=== PATIENT | female | born 1970 | race Caucasian/White ===

== ENCOUNTER 2019-12-21 17:24 | Emergency (ER) | payer MEDICAID, SELFPAY ==
[2019-12-21 17:26] VITALS: BP 120/64; PULSE 57; RESP 16; TEMP 36.4; O2SAT 99; BMI 24.2
--- NOTE | 2019-12-21 17:35 | CTR_ITS ---
PROCEDURE INFORMATION: Exam: CT Head Without Contrast Exam date and time: 12/21/2019 5:52 PM Age: 49 years old Clinical indication: Pain; Dizziness and weakness, extremity; Left; Headache; Prior surgery; Surgery type: Jaw; Additional info: Headache, dizziness TECHNIQUE: Imaging protocol: Computed tomography of the head without contrast. Total DLP: 731.55 mGy-cm Radiation optimization: All CT scans at this facility use at least one of these dose optimization techniques: automated exposure control; mA and/or kV adjustment per patient size (includes targeted exams where dose is matched to clinical indication); or iterative reconstruction. COMPARISON: CT head wo con* [id number] 04/22/2013 10:16 AM FINDINGS: Brain: Normal. No hemorrhage. Unremarkable white matter. No mass effect. Ventricles: Normal. No ventriculomegaly. Bones/joints: Unremarkable. No acute fracture. Sinuses: Visualized sinuses are unremarkable. No fluid levels. Mastoid air cells: Visualized mastoid air cells are well aerated. Soft tissues: Unremarkable. CT/CT head wo con* [id number] IMPRESSION: No acute intracranial abnormality. Radiation Dose CTDIVOL = (mGy): DLP = 731.55 (mGy-cm)
[2019-12-21 17:54] LABS: Basophils % 0.4 %; Eosinophils # 0.2 10^3/uL (0.0-0.8); Eosinophils % 2.3 %; Hematocrit 45.8 % (37.0-47.0); Hemoglobin 15.3 g/dL (11.5-15.3); Lymphocytes # 3.4 10^3/uL (0.8-4.8); Lymphocytes % 46.2 %; Mean Corpuscular HGB Conc 33.4 g/dL (30.0-36.0); Mean Corpuscular Hemoglobin 32.7 pg (28.0-34.0); Mean Corpuscular Volume 97.9 fL (81-99); Monocytes # 0.3 10^3/uL (0.2-0.9); Monocytes % 4.3 %; Neutrophils # 3.5 10^3/uL (1.8-7.7); Neutrophils % 46.5 %; Nucleated Red Blood Cells % 0 %; Platelet Count 310 10^3/cmm (130-400); Red Blood Count 4.68 10^6/uL (4.1-5.3); Red Cell Distribution Width 12.6 % (12.1-15.1); White Blood Count 7.5 10^3/uL (4.0-10.0)
[2019-12-21 18:25] LABS: Alanine Aminotransferase 9 U/L (0-33); Albumin Level 4.3 g/dL (3.5-5.2); Alkaline Phosphatase 168 IU/L (35-105); Anion Gap 21.3 (5-19); Aspartate Amino Transferase 16 U/L (0-32); Blood Urea Nitrogen 5 mg/dL (6-20); Calcium 9.7 mg/dL (8.5-10.5); Carbon Dioxide 26 mmol/L (22-29); Chloride 97 mmol/L (98-107); Creatine Phosphokinase 46 U/L (26-192); Globulin 3.1 g/dL (1.3-4.6); Glomerular Filtration Rate 75.9 mL/min (90-130); Glucose 135 mg/dL (74-109); Potassium 3.3 mmol/L (3.5-5.1); Sodium 141 mmol/L (136-145); Thyroid Stimulating Hormone 1.85 uIU/mL (0.27-4.20); Total Bilirubin 0.4 mg/dL (0.15-1.2); Total Protein 7.4 g/dL (6.6-8.7)
[2019-12-21 19:40] VITALS: O2SAT 98
[2019-12-21] MEDS: metoclopramide 5 mg/mL SDV 2 mL 10 MG IM (19:56)
[2019-12-21] MEDS: diphenhydrAMINE 50 mg/mL SDV 1mL IM (20:01)
--- NOTE | 2019-12-21 20:04 | ED_ITS ---
HPI - Headache General: Chief Complaint: Headache Stated Complaint: cisneros, cramping, slurring words Time Seen by Provider: 12/21/19 19:51 Source: patient Mode of arrival: ambulatory Limitations: no limitations History of Present Illness: HPI Narrative: 49-year-old female has a history of migraines. She states she had a migraine headache that started roughly 4 to 5 hours ago. She states when the migraine started she started having difficulty seeing and weakness in both arms. Patient states that since her headache is resolving and her neurologic symptoms of completely resolved. Her headache is now 3 out of 10. She has a long history of migraines and this felt similar. MD elicited complaint: headache and migraine Pertinent past history: migraines Onset (ago): hour(s) (4) Onset description: gradually Location: frontal Associated symptoms: Deny chest pain, fever(s), nausea, rash or vomiting Review of Systems Const: Denies: fever or chills Eyes: Reports: change in vision and blurry vision ENMT: Denies: throat pain or mouth pain Card: Denies: chest pain Resp: Denies: shortness of breath GI: Denies: abdominal pain, nausea, vomiting or diarrhea : Denies: difficulty urinating Musc: Denies: back pain or joint pain Skin/Breast: Denies: rash Neuro: Reports: headache; Denies: behavioral changes Psych: Denies: depression Endo: Denies: excessive urination [place]/Lymph: Denies: easy bruising All/Imm: Denies: hives PFSH ED PFSH: Statuses (acute, chronic, etc) shown below reflect problem list status as previously entered and may not be historically accurate Social History Smoking and tobacco status: current every day smoker Physical Exam Const: COMMON NORMALS: no apparent distress and healthy appearing HENMT: COMMON NORMALS: normocephalic and external nose normal HEAD & SCALP: normocephalic NOSE: external nose normal and no nasal discharge (nasal dischage) Eye: COMMON NORMALS: PERRL PUPIL: Yes PERRL Neck/C-Spine: COMMON NORMALS: full ROM and no lymphadenopathy Chest: COMMONS NORMALS: inspection of chest normal Resp: COMMON NORMALS: normal respiratory effort and clear to auscultation bilaterally AUSCULTATION: clear to auscultation bilaterally Cardio: COMMON NORMALS: regular rate and regular rhythm RATE: regular rate RHYTHM: regular rhythm GI: COMMON NORMALS: soft to palpation PALPATION: Yes soft Extremity: COMMON NORMALS: normal to inspection, full ROM and normal capillary refill Psych: COMMON NORMALS: mental status grossly normal and cooperative Skin: COMMON NORMALS: no rashes or lesions noted GENERAL SKIN EXAM: no rashes or lesions noted Course Vital Signs: Vital signs: Vital Signs Temperature 97.6 F 12/21/19 17:26 Pulse Rate 57 L 12/21/19 17:26 Respiratory Rate 16 12/21/19 17:26 Blood Pressure 120/64 12/21/19 17:26 Pulse Oximetry 98 12/21/19 19:40 MDM - Headache MDM Narrative: Medical decision making narrative: Patient presents here with a migraine with aura. Patient has no signs of a stroke. Patient is well- appearing here and headache has partially resolved. Her neurologic symptoms are completely resolved. Patient is stable for discharge and is to follow-up with primary care doctor in 3 to 5 days. Patient has no signs of stroke or subarachnoid hemorrhage. She is return if worsening. Lab Data: Labs: Lab Results 12/21/19 12/21/19 Range/Units 17:48 17:48 WBC 7.5 (4.0-10.0) 10^3/ uL RBC 4.68 (4.1-5.3) 10^6/u L Hgb 15.3 (11.5-15.3) g/dL Hct 45.8 (37.0-47.0) % MCV 97.9 (81-99) fL MCH 32.7 (28.0-34.0) pg MCHC 33.4 (30.0-36.0) g/dL RDW 12.6 (12.1-15.1) % Plt Count 310 (130-400) 10^3/c mm MPV 9.0 (7.4-10.4) fL Neut % (Auto) 46.5 % Lymph % (Auto) 46.2 % [place] % (Auto) 4.3 % Eos % (Auto) 2.3 % Baso % (Auto) 0.4 % Neut # (Auto) 3.5 (1.8-7.7) 10^3/u L Lymph # (Auto) 3.4 (0.8-4.8) 10^3/u L [place] # (Auto) 0.3 (0.2-0.9) 10^3/u L Eos # (Auto) 0.2 (0.0-0.8) 10^3/u L Baso # (Auto) 0.0 (0.0-0.1) 10^3/u L Nucleated RBC % (a uto) 0 % Nucleated RBCs # 0.0 /100WBC Sodium 141 (136-145) mmol/L Potassium 3.3 L (3.5-5.1) mmol/L Chloride 97 L (98-107) mmol/L Carbon Dioxide 26 (22-29) mmol/L Anion Gap 21.3 H (5-19) BUN 5 L (6-20) mg/dL Creatinine 0.8 (0.5-0.9) mg/dL GFR Calculation 75.9 L (90-130) mL/min Glucose 135 H (74-109) mg/dL Calcium 9.7 (8.5-10.5) mg/dL Magnesium 2.0 (1.7-2.3) mg/dL Total Bilirubin 0.4 (0.15-1.2) mg/dL AST 16 (0-32) U/L ALT 9 (0-33) U/L Alkaline Phosphata se 168 H (35-105) IU/L Creatine Kinase 46 (26-192) U/L Total Protein 7.4 (6.6-8.7) g/dL Albumin 4.3 (3.5-5.2) g/dL Globulin 3.1 (1.3-4.6) g/dL TSH 1.85 (0.27-4.20) uIU/ mL Imaging Data^: CT Head: Radiologist's impression: Patient: Lauren Bae Unit #: [id number] : 1970 Age/Sex: 49 / F ADM Date: 12/21/19 Loc: ER Room/Bed: Attending Dr: Ordering Provider/Ordering MD: Ben Fan DO Date of Service: 12/21/19 Procedure(s): CT head wo con* [id number] Accession Number(s): [id number] Report Number: [id number] PROCEDURE INFORMATION: Exam: CT Head Without Contrast Exam date and time: 12/21/2019 5:52 PM Age: 49 years old Clinical indication: Pain; Dizziness and weakness, extremity; Left; Headache; Prior surgery; Surgery type: Jaw; Additional info: Headache, dizziness TECHNIQUE: Imaging protocol: Computed tomography of the head without contrast. Total DLP: 731.55 mGy-cm Radiation optimization: All CT scans at this facility use at least one of these dose optimization techniques: automated exposure control; mA and/or kV adjustment per patient size (includes targeted exams where dose is matched to clinical indication); or iterative reconstruction. COMPARISON: CT head wo con* [id number] 04/22/2013 10:16 AM FINDINGS: Brain: Normal. No hemorrhage. Unremarkable white matter. No mass effect. Ventricles: Normal. No ventriculomegaly. Bones/joints: Unremarkable. No acute fracture. Sinuses: Visualized sinuses are unremarkable. No fluid levels. Mastoid air cells: Visualized mastoid air cells are well aerated. Soft tissues: Unremarkable. CT/CT head wo con* [id number] IMPRESSION: No acute intracranial abnormality. Discharge Plan Discharge Patient Disposition: Home, Self-Care Clinical Impression: Migraine Qualifiers: Migraine type: with aura Status migrainosus presence: without status migrainosus Intractability: not intractable Qualified Code(s): G43.109 - Migraine with aura, not intractable, without status migrainosus Condition: Stable Discharge Orders: Discharge Order (Routine); Ordered 12/21/19 Ordered By: Gerard Staley Referrals: Meli Goldman DO [Primary Care Provider] - 4-7 days Discharge Diet: Advance as tolerated Discharge Activity: Resume usual activity Patient Instructions: Headache - Migraine (Adult) Coding Level of Care Code ED Center Line Cutter Operator for Vane Lynch
[2019-12-21 20:24] LABS: Blood Urine Neg (Negative); Glucose Urine UA Norm (Normal); Ketones Urine 1+ (Negative); Nitrate Urine Negative (Negative); Protein Urine 1+ (Negative); Urine Appearance Cloudy (CLEAR); Urine Color Yellow (Yellow); pH Urine 5 (5-7)
[2019-12-21 20:25] LABS: Add Urine Culture? No; Add Urine Microscopic? YES; Bacteria Urine 2+; Bilirubin Urine 1+ (NEGATIVE); Leukocyte Esterase Urine Negative (Negative); RBC Urine 0-4 /hpf (0-2); Squamous Epithelial Cell Urine 80-100 (0-5); Urobilinogen Urine 1 mg/dL (Negative)
[2019-12-21 20:32] VITALS: PULSE 58; O2SAT 94
== END 2019-12-21 20:33 | disposition home or self-care (01) ==
PROVIDERS: Family Medicine; Emergency Provider Emergency Medicine; Family Provider Family Medicine; PCP Family Medicine
DX: G43.109 Migraine with aura, not intractable, without status migrainosus (principal); F17.210 Nicotine dependence, cigarettes, uncomplicated
CPT/HCPCS: 36415; 70450; 80053; 81001; 82550; 83735; 84443; 85025; 96372; 99282; J1200; J2765

== ENCOUNTER → 2019-12-25 14:45 | Outpatient (BNVA) | payer MEDICAID, SELFPAY | PROVIDERS: Family Provider Family Medicine; PCP Family Medicine; Visit Provider Nurse Practitioner | DX: F43.12 Post-traumatic stress disorder, chronic (principal); F60.3 Borderline personality disorder; F17.210 Nicotine dependence, cigarettes, uncomplicated | CPT/HCPCS: 99213 ==

== ENCOUNTER → 2020-03-20 07:42 | Outpatient (BNVA) | payer MEDICAID, SELFPAY | PROVIDERS: Family Provider Family Medicine; PCP Family Medicine; Visit Provider Nurse Practitioner | DX: F43.12 Post-traumatic stress disorder, chronic (principal); F60.3 Borderline personality disorder; F17.210 Nicotine dependence, cigarettes, uncomplicated | CPT/HCPCS: 99213 ==

== ENCOUNTER → 2020-05-06 11:59 | Outpatient (BNVA) | payer MEDICAID, SELFPAY | PROVIDERS: Family Provider Family Medicine; PCP Family Medicine; Visit Provider Dermatology | DX: F33.1 Major depressive disorder, recurrent, moderate (principal); Z79.899 Other long term (current) drug therapy | CPT/HCPCS: 80061; 83036 ==

== ENCOUNTER 2020-05-27 06:35 | Day surgery (SDC) | payer MEDICAID, SELFPAY ==
[2020-05-07 11:33] VITALS: BP 120/81; BMI 26.1
[2020-05-26 11:57] VITALS: BMI 25.8
[2020-05-27 07:00] VITALS: BP 120/80; PULSE 58; RESP 18; TEMP 36.7; O2SAT 93
--- NOTE | 2020-05-27 07:12 | ANES.PREANE2 ---
Pre-Anesthetic Assessment Pre-Anesthetic Assessment: Height/Weight: Height 1.7 m Weight 74.843 kg Temp Pulse Resp BP Pulse Ox 98.1 F 58 L 18 120/80 93 05/27/20 07:00 05/27/20 07:00 05/27/20 07:00 05/27/20 07:00 05/27/20 07:00 Proposed Procedure: Operation Date: 05/27/20 08:15 Proposed Procedures p [id number] colonoscopy with possible biopsy, possible polypectomy Z12.11(Not Applicable) - Jamel Sal MD Was Beta Macario taken within 24 hours: N/A Last intake: Intake Last Liquid Date 05/26/20 Last Liquid Time 23:00 Last Solid Date 05/26/20 Last Solid Time 12:00 Last Intake: 08:13 Social: Social History: Tobacco and No alcohol Packs per day: 1/2 Pack years: 15 Exam: Pre-Anes Outpt Exam: alert, oriented x 3, clear to auscultation bilaterally and regular rate & rhythm Airway: Submandibular: WNL Cervical ROM: WNL MP: 1 Dentition: False Pulmonary: Pulmonary: None reported CV/HEM: CV/HEM: None reported : : None reported Hepatic: Hepatic: None reported GI: GI: None reported Metabolic: Metabolic: None reported Musc/skel: Musc/skel: None reported Neuropsych: Neuropsych: None reported Anesthetic Plan: ASA status: 2 Anesthesia: MAC Risk of > 500 ml blood loss (7ml/kg in children): No PFSH Anesthesia PFSH: Medical History Borderline personality disorder Major depressive disorder, recurrent, moderate Migraine headache Mixed incontinence Nicotine dependence, cigarettes, uncomplicated Post-traumatic stress disorder, chronic Surgical History H/O tubal ligation H/O: hysterectomy Family History Other Diabetes Hypertension Denies family history of Anesthesia complication Bleeding disorder Social History Smoking and tobacco status: current every day smoker cigarettes Packs smoked per day: 0.5 Alcohol intake: never Data Anesthesia Cardiac Studies: No Data to Display
[2020-05-27] MEDS: sodium chloride 0.9% 500 ML 30 ML IV (07:20)
--- NOTE | 2020-05-27 08:16 | P.HP_ITS ---
Providers/Chief Complaint Primary Care Provider: Meli Goldman DO History of Present Illness Lauren Bae is a 49 year old female who presents for screening colonoscopy. No other symptoms no family still colon cancer Review of Systems General: Reports: 10 or more systems reviewed and unremarkable except in HPI and below Medications/Allergies Home Medications Medication Instructions Recorded Confirmed Last Taken Type propranolol 10 mg tablet 10 mg PO BID 12/25/19 05/27/20 05/26/20 08:00 History aripiprazole 15 mg tablet 15 mg PO QDAY #30 tab 03/20/20 05/27/20 05/26/20 08:00 Rx bupropion HCl 300 mg 24 hr tablet, 300 mg PO QAM #30 tab 03/20/20 05/27/20 05/26/20 08:00 Rx extended release fluoxetine 40 mg capsule 80 mg PO QAM #60 cap 03/20/20 05/27/20 05/26/20 08:00 Rx lamotrigine 200 mg tablet 200 mg PO BID #60 tab 03/20/20 05/27/20 05/26/20 08:00 Rx topiramate 100 mg tablet 100 mg PO BID #60 tab 03/20/20 05/27/20 05/26/20 08:00 Rx oxybutynin chloride 10 mg 10 mg PO QDAY #90 tab 05/08/20 05/27/20 05/26/20 08:00 Rx tablet,extended release 24 hr Allergies Allergy/AdvReac Type Severity Reaction Status Date / Time No Known Allergies Allergy Verified 05/27/20 06:57 PFSH PFSH: Medical History Borderline personality disorder Major depressive disorder, recurrent, moderate Migraine headache Mixed incontinence Nicotine dependence, cigarettes, uncomplicated Post-traumatic stress disorder, chronic Surgical History H/O tubal ligation H/O: hysterectomy Family History Other Diabetes Hypertension Denies family history of Anesthesia complication Bleeding disorder Social History Smoking and tobacco status: current every day smoker cigarettes Packs smoked per day: 0.5 Alcohol intake: never Vital Signs Vitals Signs: Last Vital Signs Temp 98.1 F 05/27/20 07:00 Pulse 58 L 05/27/20 07:00 Resp 18 05/27/20 07:00 BP 120/80 05/27/20 07:00 Pulse Ox 93 05/27/20 07:00 Weight: Weight last 48 hrs Weight 165 lb Physical Exam 2 Narrative: EXAM NARRATIVE: HEENT: Normocephalic Eye: Sclera /conjunctiva normal Respiratory and chest: Bilateral clear breath sounds on auscultation Neurological: Oriented to place person and time Skin: Intact, no lesions appreciated on gross exam A&P Assessment and plan (1) Screening for colon cancer: The patient is scheduled for colonoscopy under MAC. The procedure risks and benefits, including infection, bleeding and bowel injury, has been explained to the patient, who has consented to the procedure. Information about the prep has been provided to the patient. Status: Acute Coding Level of Care Code Acute Sponsorship Manager for Vane Fwd Diagnoses Screening for colon cancer Z12.11
[2020-05-27 08:57] VITALS: BP 133/75; PULSE 59; RESP 16; O2SAT 96
--- NOTE | 2020-05-27 09:02 | ANE.PACU2 ---
Inpatient post-anesthesia follow up: Airway intact: Yes Vital signs: Temperature 98.1 F Pulse Rate 59 Respiratory Rate 16 Blood Pressure 133/75 Pulse Oximetry 96 Oxygen Delivery Me thod Nasal Cannula Oxygen Flow Rate 2 Fraction of Inspir ed Oxygen Hydration adequate: Yes Nausea and vomiting: No Pain level: 1 Mental status: Baseline
[2020-05-27 09:07] VITALS: BP 124/76; PULSE 48; RESP 16; TEMP 36.2; O2SAT 99
== END 2020-05-27 09:29 | disposition home or self-care (01) ==
PROVIDERS: PCP Family Medicine; Visit Provider Surgery
PROC: 0DJD8ZZ Inspection of Lower Intestinal Tract, Via Natural or Artificial Opening Endoscopic (ICD-10-PCS; CPT 45378; principal; 2020-05-27 08:15)
DX: Z12.11 Encounter for screening for malignant neoplasm of colon (principal); D12.2 Benign neoplasm of ascending colon; D12.4 Benign neoplasm of descending colon; D12.5 Benign neoplasm of sigmoid colon; F33.9 Major depressive disorder, recurrent, unspecified; Z82.49 Family history of ischemic heart disease and other diseases of the circulatory system; Z83.3 Family history of diabetes mellitus; F17.210 Nicotine dependence, cigarettes, uncomplicated
CPT/HCPCS: 12345; 45380; 88305; J2704

== ENCOUNTER → 2020-07-24 09:20 | Outpatient (BNVA) | payer MEDICAID, SELFPAY ==
[2020-05-07 11:33] VITALS: BP 120/81; BMI 26.1
== END ==
PROVIDERS: PCP Family Medicine; Visit Provider Nurse Practitioner
DX: F43.12 Post-traumatic stress disorder, chronic (principal); F60.3 Borderline personality disorder; F17.210 Nicotine dependence, cigarettes, uncomplicated
CPT/HCPCS: 99213

== ENCOUNTER → 2020-10-16 08:21 | Outpatient (BNVA) | payer MEDICAID, SELFPAY ==
[2020-09-13 11:32] VITALS: BP 120/81; BMI 26.1
== END ==
PROVIDERS: PCP Family Medicine; Visit Provider Nurse Practitioner
DX: F43.12 Post-traumatic stress disorder, chronic (principal); F60.3 Borderline personality disorder; F17.210 Nicotine dependence, cigarettes, uncomplicated; Z12.31 Encounter for screening mammogram for malignant neoplasm of breast
CPT/HCPCS: 87070; 87205; 99213

== ENCOUNTER 2020-12-15 10:49 | Outpatient (CLI) | payer MEDICAID, SELFPAY ==
[2020-09-13 11:32] VITALS: BP 120/81; BMI 26.1
--- NOTE | 2020-12-15 11:00 | MM_ITS ---
WS: [id number] BILATERAL SCREENING DIGITAL MAMMOGRAM WITH CAD HISTORY: screening mammogram COMPARISON: 06/20/2015 Bilateral CC and MLO views submitted. Computer aided detection analyzed. Breast composition: There are scattered areas of fibroglandular density. No suspicious masses, microc alcifications or architectural distortion. Benign lymph nodes in the axillary tails. MM/[place] [id number] IMPRESSION: BI-RADS: 2-Benign FOLLOW UP: 1 Year Follow-up
== END 2020-12-15 10:50 | disposition home or self-care (01) ==
LOC: RADSHAW 10:51
PROVIDERS: PCP Family Medicine; Visit Provider Family Medicine
DX: Z12.31 Encounter for screening mammogram for malignant neoplasm of breast (principal)
CPT/HCPCS: 77067

== ENCOUNTER → 2021-01-08 07:57 | Outpatient (BNVA) | payer MEDICAID, SELFPAY ==
[2020-09-13 11:32] VITALS: BP 120/81; BMI 26.1
== END ==
PROVIDERS: PCP Family Medicine; Visit Provider Nurse Practitioner
DX: F43.12 Post-traumatic stress disorder, chronic (principal); F60.3 Borderline personality disorder; F17.210 Nicotine dependence, cigarettes, uncomplicated
CPT/HCPCS: 99214

== ENCOUNTER → 2021-04-02 08:23 | Outpatient (BNVA) | payer MEDICAID, SELFPAY ==
[2020-09-13 11:32] VITALS: BP 120/81; BMI 26.1
== END ==
PROVIDERS: PCP Family Medicine; Visit Provider Nurse Practitioner
DX: F43.12 Post-traumatic stress disorder, chronic (principal); F60.3 Borderline personality disorder; F17.210 Nicotine dependence, cigarettes, uncomplicated
CPT/HCPCS: 99214

== ENCOUNTER → 2021-04-07 08:35 | Outpatient (BNVA) | payer MEDICAID, SELFPAY ==
[2020-09-13 11:32] VITALS: BP 120/81; BMI 26.1
== END ==
PROVIDERS: PCP Family Medicine; Visit Provider Nurse Practitioner
DX: F43.12 Post-traumatic stress disorder, chronic (principal); F60.3 Borderline personality disorder; F17.210 Nicotine dependence, cigarettes, uncomplicated
CPT/HCPCS: 99214

== ENCOUNTER → 2021-05-14 09:06 | Outpatient (BNVA) | payer MEDICAID, SELFPAY ==
[2020-09-13 11:32] VITALS: BP 120/81; BMI 26.1
== END ==
PROVIDERS: PCP Family Medicine; Visit Provider Nurse Practitioner
DX: F43.12 Post-traumatic stress disorder, chronic (principal); F60.3 Borderline personality disorder; F17.210 Nicotine dependence, cigarettes, uncomplicated
CPT/HCPCS: 99214

== ENCOUNTER → 2021-07-06 14:26 | Outpatient (BNVA) | payer OTHER, SELFPAY ==
[2020-09-13 11:32] VITALS: BP 120/81; BMI 26.1
== END ==
PROVIDERS: PCP Family Medicine; Visit Provider Nurse Practitioner
DX: F43.12 Post-traumatic stress disorder, chronic (principal); Z79.899 Other long term (current) drug therapy
CPT/HCPCS: 80061; 83036

== ENCOUNTER → 2021-08-06 09:10 | Outpatient (BNVA) | payer MEDICAID, SELFPAY ==
[2021-07-08 15:49] VITALS: BP 141/84; BMI 27.9
== END ==
PROVIDERS: PCP Family Medicine; Visit Provider Nurse Practitioner
DX: F43.12 Post-traumatic stress disorder, chronic (principal); F60.3 Borderline personality disorder; F17.210 Nicotine dependence, cigarettes, uncomplicated
CPT/HCPCS: 99214

== ENCOUNTER → 2021-09-23 13:38 | Outpatient (BNVA) | payer MEDICAID, SELFPAY ==
[2021-07-08 15:49] VITALS: BP 141/84; BMI 27.9
== END ==
PROVIDERS: PCP Family Medicine; Visit Provider Counselor Professional
DX: F43.12 Post-traumatic stress disorder, chronic (principal); F41.9 Anxiety disorder, unspecified
CPT/HCPCS: 90834

== ENCOUNTER → 2021-10-02 14:41 | Outpatient (BNVA) | payer MEDICAID, SELFPAY ==
[2021-07-08 15:49] VITALS: BP 141/84; BMI 27.9
== END ==
PROVIDERS: PCP Family Medicine; Visit Provider Counselor Professional
DX: F43.12 Post-traumatic stress disorder, chronic (principal); F41.9 Anxiety disorder, unspecified; R45.81 Low self-esteem
CPT/HCPCS: 90834

== ENCOUNTER → 2021-10-16 13:49 | Outpatient (BNVA) | payer MEDICAID, SELFPAY ==
[2021-07-08 15:49] VITALS: BP 141/84; BMI 27.9
== END ==
PROVIDERS: PCP Family Medicine; Visit Provider Counselor Professional
DX: F43.12 Post-traumatic stress disorder, chronic (principal); F41.9 Anxiety disorder, unspecified; R45.81 Low self-esteem
CPT/HCPCS: 90834

== ENCOUNTER → 2021-10-29 08:44 | Outpatient (BNVA) | payer MEDICAID, SELFPAY ==
[2021-07-08 15:49] VITALS: BP 141/84; BMI 27.9
== END ==
PROVIDERS: PCP Family Medicine; Visit Provider Nurse Practitioner
DX: F43.12 Post-traumatic stress disorder, chronic (principal); F60.3 Borderline personality disorder; F17.210 Nicotine dependence, cigarettes, uncomplicated
CPT/HCPCS: 90834; 99214

== ENCOUNTER → 2021-11-13 12:52 | Outpatient (BNVA) | payer MEDICAID, SELFPAY ==
[2021-07-08 15:49] VITALS: BP 141/84; BMI 27.9
== END ==
PROVIDERS: PCP Family Medicine; Visit Provider Counselor Professional
DX: F43.12 Post-traumatic stress disorder, chronic (principal); F41.9 Anxiety disorder, unspecified; R45.81 Low self-esteem
CPT/HCPCS: 90837; 90834

== ENCOUNTER → 2021-11-19 12:50 | Outpatient (BNVA) | payer MEDICAID, SELFPAY ==
[2021-07-08 15:49] VITALS: BP 141/84; BMI 27.9
== END ==
PROVIDERS: PCP Family Medicine; Visit Provider Counselor Professional
DX: F43.12 Post-traumatic stress disorder, chronic (principal); F41.9 Anxiety disorder, unspecified; R45.81 Low self-esteem
CPT/HCPCS: 90837; 90834

== ENCOUNTER → 2021-12-04 10:55 | Outpatient (BNVA) | payer MEDICAID, SELFPAY ==
[2021-07-08 15:49] VITALS: BP 141/84; BMI 27.9
== END ==
PROVIDERS: PCP Family Medicine; Visit Provider Counselor Professional
DX: F43.12 Post-traumatic stress disorder, chronic (principal); F41.9 Anxiety disorder, unspecified; R45.81 Low self-esteem
CPT/HCPCS: 90834

== ENCOUNTER → 2021-12-11 13:56 | Outpatient (BNVA) | payer MEDICAID, SELFPAY ==
[2021-07-08 15:49] VITALS: BP 141/84; BMI 27.9
== END ==
PROVIDERS: PCP Family Medicine; Visit Provider Counselor Professional
DX: F43.12 Post-traumatic stress disorder, chronic (principal); F41.9 Anxiety disorder, unspecified; R45.81 Low self-esteem
CPT/HCPCS: 90837; 90834

== ENCOUNTER → 2021-12-18 13:53 | Outpatient (BNVA) | payer MEDICAID, SELFPAY ==
[2021-07-08 15:49] VITALS: BP 141/84; BMI 27.9
== END ==
PROVIDERS: PCP Family Medicine; Visit Provider Counselor Professional
DX: F43.12 Post-traumatic stress disorder, chronic (principal); F41.9 Anxiety disorder, unspecified; R45.81 Low self-esteem
CPT/HCPCS: 90834

== ENCOUNTER → 2021-12-24 11:42 | Outpatient (BNVA) | payer MEDICAID, SELFPAY ==
[2021-07-08 15:49] VITALS: BP 141/84; BMI 27.9
== END ==
PROVIDERS: PCP Family Medicine; Visit Provider Family Medicine
DX: Z13.6 Encounter for screening for cardiovascular disorders (principal)
CPT/HCPCS: 80053; 85025

== ENCOUNTER → 2021-12-25 10:03 | Outpatient (BNVA) | payer MEDICAID, SELFPAY ==
[2021-07-08 15:49] VITALS: BP 141/84; BMI 27.9
== END ==
PROVIDERS: PCP Family Medicine; Visit Provider Counselor Professional
DX: F43.12 Post-traumatic stress disorder, chronic (principal); F41.9 Anxiety disorder, unspecified; R45.81 Low self-esteem
CPT/HCPCS: 90832

== ENCOUNTER → 2022-01-07 12:54 | Outpatient (BNVA) | payer MEDICAID, SELFPAY ==
[2021-07-08 15:49] VITALS: BP 141/84; BMI 27.9
== END ==
PROVIDERS: PCP Family Medicine; Visit Provider Counselor Professional
DX: F43.12 Post-traumatic stress disorder, chronic (principal); F41.9 Anxiety disorder, unspecified; R45.81 Low self-esteem
CPT/HCPCS: 90834

== ENCOUNTER → 2022-01-25 12:31 | Outpatient (BNVA) | payer MEDICAID, SELFPAY ==
[2021-07-08 15:49] VITALS: BP 141/84; BMI 27.9
== END ==
PROVIDERS: PCP Family Medicine; Visit Provider Nurse Practitioner
DX: F43.12 Post-traumatic stress disorder, chronic (principal); F60.3 Borderline personality disorder; F17.210 Nicotine dependence, cigarettes, uncomplicated
CPT/HCPCS: 99214

== ENCOUNTER → 2022-01-28 12:55 | Outpatient (BNVA) | payer MEDICAID, SELFPAY ==
[2021-07-08 15:49] VITALS: BP 141/84; BMI 27.9
== END ==
PROVIDERS: PCP Family Medicine; Visit Provider Counselor Professional
DX: F43.12 Post-traumatic stress disorder, chronic (principal); F41.9 Anxiety disorder, unspecified; R45.81 Low self-esteem
CPT/HCPCS: 90834

== ENCOUNTER → 2022-02-05 12:55 | Outpatient (BNVA) | payer MEDICAID, OTHER, SELFPAY ==
[2021-07-08 15:49] VITALS: BP 141/84; BMI 27.9
== END ==
PROVIDERS: PCP Family Medicine; Visit Provider Counselor Professional
DX: F43.12 Post-traumatic stress disorder, chronic (principal); F41.9 Anxiety disorder, unspecified; R45.81 Low self-esteem; F60.3 Borderline personality disorder
CPT/HCPCS: 90834

== ENCOUNTER → 2022-02-12 12:44 | Outpatient (BNVA) | payer MEDICAID, SELFPAY ==
[2021-07-08 15:49] VITALS: BP 141/84; BMI 27.9
== END ==
PROVIDERS: PCP Family Medicine; Visit Provider Counselor Professional
DX: F43.12 Post-traumatic stress disorder, chronic (principal); F41.3 Other mixed anxiety disorders; R45.81 Low self-esteem; F60.3 Borderline personality disorder
CPT/HCPCS: 90837; 90834

== ENCOUNTER → 2022-02-22 12:24 | Outpatient (BNVA) | payer MEDICAID, SELFPAY ==
[2021-07-08 15:49] VITALS: BP 141/84; BMI 27.9
== END ==
PROVIDERS: PCP Family Medicine; Visit Provider Nurse Practitioner
DX: F43.12 Post-traumatic stress disorder, chronic (principal); F60.3 Borderline personality disorder; F17.210 Nicotine dependence, cigarettes, uncomplicated
CPT/HCPCS: 99214

== ENCOUNTER → 2022-02-25 12:58 | Outpatient (BNVA) | payer MEDICAID, SELFPAY ==
[2021-07-08 15:49] VITALS: BP 141/84; BMI 27.9
== END ==
PROVIDERS: PCP Family Medicine; Visit Provider Counselor Professional
DX: F43.12 Post-traumatic stress disorder, chronic (principal); F41.9 Anxiety disorder, unspecified; R45.81 Low self-esteem; F60.3 Borderline personality disorder
CPT/HCPCS: 90834

== ENCOUNTER → 2022-03-01 11:59 | Outpatient (BNVA) | payer MEDICAID, SELFPAY ==
[2021-07-08 15:49] VITALS: BP 141/84; BMI 27.9
== END ==
PROVIDERS: PCP Family Medicine; Visit Provider Registered Nurse Neonatal Intensive Care
DX: B34.9 Viral infection, unspecified (principal); R52 Pain, unspecified
CPT/HCPCS: 87400

== ENCOUNTER → 2022-03-10 13:22 | Outpatient (BNVA) | payer MEDICAID, SELFPAY ==
[2022-03-10 10:04] VITALS: BP 141/84; BMI 27.9
== END ==
PROVIDERS: PCP Family Medicine; Visit Provider Counselor Professional
DX: F43.12 Post-traumatic stress disorder, chronic (principal); F41.9 Anxiety disorder, unspecified; R45.81 Low self-esteem; F60.3 Borderline personality disorder
CPT/HCPCS: 90834

== ENCOUNTER → 2022-03-18 13:28 | Outpatient (BNVA) | payer MEDICAID, SELFPAY ==
[2022-03-10 10:04] VITALS: BP 141/84; BMI 27.9
== END ==
PROVIDERS: PCP Family Medicine; Visit Provider Counselor Professional
DX: F43.12 Post-traumatic stress disorder, chronic (principal); F41.9 Anxiety disorder, unspecified; R45.81 Low self-esteem
CPT/HCPCS: 90834

== ENCOUNTER → 2022-03-24 13:50 | Outpatient (BNVA) | payer MEDICAID, SELFPAY ==
[2022-03-10 10:04] VITALS: BP 141/84; BMI 27.9
== END ==
PROVIDERS: PCP Family Medicine; Visit Provider Counselor Professional
DX: F41.9 Anxiety disorder, unspecified (principal); F43.12 Post-traumatic stress disorder, chronic; F60.3 Borderline personality disorder; R45.81 Low self-esteem
CPT/HCPCS: 90834

== ENCOUNTER → 2022-03-31 13:35 | Outpatient (BNVA) | payer MEDICAID, SELFPAY ==
[2022-03-10 10:04] VITALS: BP 141/84; BMI 27.9
== END ==
PROVIDERS: PCP Family Medicine; Visit Provider Counselor Professional
DX: F41.9 Anxiety disorder, unspecified (principal); F43.12 Post-traumatic stress disorder, chronic; F60.3 Borderline personality disorder; R45.81 Low self-esteem
CPT/HCPCS: 90834; 90839

== ENCOUNTER → 2022-04-01 08:00 | Outpatient (BNVA) | payer MEDICAID, SELFPAY ==
[2022-03-10 10:04] VITALS: BP 141/84; BMI 27.9
== END ==
PROVIDERS: PCP Family Medicine; Visit Provider Nurse Practitioner
DX: F43.12 Post-traumatic stress disorder, chronic (principal); F60.3 Borderline personality disorder; F17.210 Nicotine dependence, cigarettes, uncomplicated
CPT/HCPCS: 99214

== ENCOUNTER → 2022-04-08 12:55 | Outpatient (BNVA) | payer MEDICAID, SELFPAY ==
[2022-04-07 10:25] VITALS: BP 141/84; BMI 27.9
== END ==
PROVIDERS: PCP Family Medicine; Visit Provider Counselor Professional
DX: F43.12 Post-traumatic stress disorder, chronic (principal); F41.9 Anxiety disorder, unspecified; F60.3 Borderline personality disorder; R45.81 Low self-esteem
CPT/HCPCS: 90832; 90834

== ENCOUNTER → 2022-04-22 14:43 | Outpatient (BNVA) | payer MEDICAID, SELFPAY ==
[2022-04-07 10:25] VITALS: BP 141/84; BMI 27.9
== END ==
PROVIDERS: PCP Family Medicine; Visit Provider Counselor Professional
DX: F43.12 Post-traumatic stress disorder, chronic (principal); F41.9 Anxiety disorder, unspecified; F60.3 Borderline personality disorder; R45.81 Low self-esteem
CPT/HCPCS: 90834

== ENCOUNTER → 2022-04-29 14:49 | Outpatient (BNVA) | payer MEDICAID, SELFPAY ==
[2022-04-07 10:25] VITALS: BP 141/84; BMI 27.9
== END ==
PROVIDERS: PCP Family Medicine; Visit Provider Counselor Professional
DX: F43.12 Post-traumatic stress disorder, chronic (principal); F41.9 Anxiety disorder, unspecified; R45.81 Low self-esteem; F60.3 Borderline personality disorder
CPT/HCPCS: 90834

== ENCOUNTER → 2022-04-30 08:37 | Outpatient (BNVA) | payer MEDICAID, SELFPAY ==
[2022-04-07 10:25] VITALS: BP 141/84; BMI 27.9
== END ==
PROVIDERS: PCP Family Medicine; Visit Provider Nurse Practitioner
DX: F43.12 Post-traumatic stress disorder, chronic (principal); F60.3 Borderline personality disorder; F17.210 Nicotine dependence, cigarettes, uncomplicated
CPT/HCPCS: 99214

== ENCOUNTER → 2022-05-06 14:53 | Outpatient (BNVA) | payer MEDICAID, SELFPAY ==
[2022-04-07 10:25] VITALS: BP 141/84; BMI 27.9
== END ==
PROVIDERS: PCP Family Medicine; Visit Provider Counselor Professional
DX: F43.12 Post-traumatic stress disorder, chronic (principal); F41.9 Anxiety disorder, unspecified; R45.81 Low self-esteem; F60.3 Borderline personality disorder
CPT/HCPCS: 90837; 90834

== ENCOUNTER → 2022-05-19 14:54 | Outpatient (BNVA) | payer MEDICAID, SELFPAY ==
[2022-04-07 10:25] VITALS: BP 141/84; BMI 27.9
== END ==
PROVIDERS: PCP Family Medicine; Visit Provider Counselor Professional
DX: F43.12 Post-traumatic stress disorder, chronic (principal); F41.9 Anxiety disorder, unspecified; F60.3 Borderline personality disorder; R45.81 Low self-esteem
CPT/HCPCS: 90834

== ENCOUNTER → 2022-07-13 11:26 | Outpatient (BNVA) | payer OTHER, SELFPAY ==
[2022-06-04 16:14] VITALS: BP 141/84; BMI 27.9
== END ==
PROVIDERS: PCP Family Medicine; Visit Provider Nurse Practitioner
DX: F60.3 Borderline personality disorder (principal); Z79.899 Other long term (current) drug therapy
CPT/HCPCS: 80061; 83036; 83721

== ENCOUNTER 2022-08-05 14:25 | Inpatient (IN) | payer MEDICAID, SELFPAY ==
[2022-08-03 14:13] VITALS: BP 115/76; BMI 27.3
[2022-08-05 14:32] VITALS: BP 131/78; PULSE 74; RESP 16; TEMP 36.7; O2SAT 95; BMI 26.1
--- NOTE | 2022-08-05 15:45 | ECG_ITS ---
[facility] Test Date: 2022-08-05 Pat Name: Lauren Bae Department: Room: Gender: Female Pin Ticket Machine Operator: UDAY: 1970 Requested By: Kailee Wisdom Order Number: [id number] Dony MD: Tommie Gloria M.D. Measurements Intervals [place] Rate: 50 P: 34 RI: 153 QRS: 66 QRSD: 72 T: 58 QT: 444 QTc: 406 Interpretive Statements SINUS BRADYCARDIA NONSPECIFIC T-WAVE ABNORMALITY Compared to ECG 09/15/2017 14:56:18 T-wave abnormality now present Sinus arrhythmia no longer present Electronically Signed On 08-06-2022 14:28:49 CDT by Tommie Gloria M.D. [email or web address]
--- NOTE | 2022-08-05 15:47 | ED.C_ITS ---
Documented by User: RONDA GreenP-Burton 08/05/22 23:25 HPI - Psych General: Chief Complaint: Psychiatric Symptoms Stated Complaint: Doesn't feel safe Time Seen by Provider: 08/05/22 14:45 History of Present Illness: 51-year-old female comes to the ER stating that she does not feel safe. Patient with disorganized thoughts. She does report that she has had increased hallucinations both auditory and visual. She reports a recent medication dose change to her BuSpar last week increasing from 10 mg to 15 mg and states that has unlocked all of the secrets . She denies thoughts of self-harm. She denies thoughts of homicide. She does report that she is afraid she is going to hurt her daughter just out of anger, but denies having any specific plan. She reports that her [facility] provider that she saw today wanted her to come and be admitted. Associated symptoms: Reports auditory hallucinations, visual hallucinations (Reports hallucinations re: True origin/alternate universe) and delusions Review of Systems Const: Denies: fever(s), chills or body aches Card: Denies: chest pain, palpitations or irregular heart rhythm Resp: Denies: dyspnea Psych: Reports: anxiety, irritability, visual hallucinations (Reports hallucinations re: True origin/alternate universe) and auditory hallucinations PFSH ED PFSH: Medical History Borderline personality disorder Cannabis dependence, uncomplicated Major depressive disorder, recurrent, moderate Migraine headache Mixed incontinence Nicotine dependence, cigarettes, uncomplicated Post-traumatic stress disorder, chronic Psychiatric care Surgical History H/O tubal ligation H/O: hysterectomy (~2003) LAVH/BSO Performed due to bleeding. Status post colonoscopy (05/27/20) polyps Family History Mother Thyroid disease Grandfather Diabetes Maternal Hypertension Maternal Denies family history of Colon cancer Ovarian cancer Heart disease Hyperlipidemia Breast cancer Bleeding disorder Uterine cancer Stroke Social History Smoking and tobacco status: current every day smoker cigarettes Packs smoked per day: 1.5 Years cigarettes smoked: 34 Quit status (tobacco): has tried quititng Second hand smoke exposure: Yes Alcohol intake: never Adopted: No Caregiver/support person: No Lives independently: Yes Household members: children Housing: Apartment Marital status: Marital status details: well over 10 years ago Number of children: 4 Number of grandchildren: 5 Highest education level completed: 10th Grade service: No Current occupational status: disabled Pets and animals: Yes Pets & animals: dog(s) History of recent travel: Yes (PSR outing to [place] and [place] twice) Out of state: Yes Leisure activites: art, music, reading and other Leisure activities details: research, nature Sexually active: No Current gender identity: Female Katie/Latter-Day: Caodaism Special katie needs: No Agree to transfusion: Yes Financial difficulty paying for basics: Not Very Hard Female Reproductive History: Para: 4 Spontaneous abortions: Yes (1 spontaneous abortions) Physical Exam Const: COMMON NORMALS: patient oriented x3 Resp: COMMON NORMALS: normal respiratory effort and clear to auscultation bilaterally AUSCULTATION: clear to auscultation bilaterally Cardio: COMMON NORMALS: regular rate, regular rhythm, S1 normal heart sound present and S2 normal heart sound present RATE: regular rate RHYTHM: regular rhythm HEART SOUNDS: S1 normal heart sound present and S2 normal heart sound present Neuro: COMMON NORMALS: patient oriented x3, moves all extremities and no focal motor deficits Psych: COMMON NORMALS: speech normal APPEARANCE: Yes disheveled ATTITUDE: Yes engaged ACTIVITY/MOTOR BEHAVIOR: Yes fidgeting and Yes disorganized behavior SPEECH: Yes normal speech MOOD & AFFECT: Yes anxious and Yes irritable THOUGHT PROCESS: disorganized, Flight of ideas present and Tangential thought process present THOUGHT CONTENT: Yes delusions JUDGEMENT: questionable OTHER: Patient is cooperative. It is difficult to follow her train of thought. She goes off on different tangents. She does redirect. She is drawing symbols on her hands as she is talking to help explain her story. She is continuously writing numbers and writing words backwards on no paper to help explain what she is talking about. Many of the statements she makes do not make sense or are referring to alternative universities. The patient denies thoughts of suicide or homicide at this time but states that since taking the increased dose of BuSpar all of the answers are coming to her and she has enlightened now. Course Consultations: Consultation #1: Called and spoke with Dr. Judge regarding patient. Advised him of patient's tangential thinking with auditory and visual hallucinations. Advised him the patient is not feeling safe at home and feeling like she may hurt her daughter and fits of rage. Patient does not have plans for homicide or suicide. Dr. Judge advised the patient should be admitted. He advised that there is no bed at [facility] until tomorrow morning. He advised that if we could transfer patient to another facility tonight that would be fine as well. Vital Signs: Vital signs: Vital Signs Temperature 98.1 F 08/05/22 23:00 Pulse Rate 68 08/05/22 23:00 Respiratory Rate 16 08/05/22 23:00 Blood Pressure 137/81 08/05/22 23:00 Pulse Oximetry 96 08/05/22 23:00 Oxygen Delivery Me thod 08/05/22 23:00 MDM - Psych Lab Data : 08/05/22 15:57 08/05/22 15:57 Laboratory Results WBC 10.9 10^3/uL (4.0-10.0) H 08/05/22 15:57 RBC 4.68 10^6/uL (4.1-5.3) 08/05/22 15:57 Hgb 15.2 g/dL (11.5-15.3) 08/05/22 15:57 Hct 45.6 % (37.0-47.0) 08/05/22 15:57 MCV 97.4 fl (81-99) 08/05/22 15:57 MCH 32.5 pg (28.0-34.0) 08/05/22 15:57 MCHC 33.3 g/dL (30.0-36.0) 08/05/22 15:57 RDW 12.1 % (12.1-15.1) 08/05/22 15:57 Plt Count 265 10^3/cmm (130-400) 08/05/22 15:57 MPV 9.2 fL (7.4-10.4) 08/05/22 15:57 Neut % (Auto) 54.5 % 08/05/22 15:57 Lymph % (Auto) 37.7 % 08/05/22 15:57 [place] % (Auto) 6.0 % 08/05/22 15:57 Eos % (Auto) 1.1 % 08/05/22 15:57 Baso % (Auto) 0.3 % 08/05/22 15:57 Neut # (Auto) 5.95 10^3/uL (1.8-7.7) 08/05/22 15:57 Lymph # (Auto) 4.1 10^3/uL (0.8-4.8) 08/05/22 15:57 [place] # (Auto) 0.7 10^3/uL (0.2-0.9) 08/05/22 15:57 Eos # (Auto) 0.1 10^3/uL (0.0-0.8) 08/05/22 15:57 Baso # (Auto) 0.0 10^3/uL (0.0-0.1) 08/05/22 15:57 Nucleated RBC % (auto) 0 % 08/05/22 15:57 Nucleated RBCs # 0.0 /100WBC 08/05/22 15:57 Sodium 138 mmol/L (136-145) 08/05/22 15:57 Potassium 3.2 mmol/L (3.5-5.1) L 08/05/22 15:57 Chloride 100 mmol/L (98-107) 08/05/22 15:57 Carbon Dioxide 29 mmol/L (22-29) 08/05/22 15:57 Anion Gap 12.2 (5-19) 08/05/22 15:57 BUN 8 mg/dL (6-20) 08/05/22 15:57 Creatinine 0.8 mg/dL (0.5-0.9) 08/05/22 15:57 GFR Calculation 75.3 mL/min (90-130) L 08/05/22 15:57 Glucose 85 mg/dL (65-115) 08/05/22 15:57 Calculated Osmolality 284 mOsm/kg (285-295) L 08/05/22 15:57 Calcium 9.8 mg/dL (8.5-10.5) 08/05/22 15:57 Total Bilirubin 0.4 mg/dL (0.15-1.2) 08/05/22 15:57 AST 14 U/L (0-32) 08/05/22 15:57 ALT 10 U/L (0-33) 08/05/22 15:57 Alkaline Phosphatase 107 U/L (35-105) H 08/05/22 15:57 Total Protein 7.5 g/dL (6.6-8.7) 08/05/22 15:57 Albumin 4.6 g/dL (3.5-5.2) 08/05/22 15:57 Globulin 2.9 g/dL (1.3-4.6) 08/05/22 15:57 Urine Color Yellow (Yellow) 08/05/22 15:50 Urine Appearance Sl hazy (CLEAR) 08/05/22 15:50 Urine pH 6 (5-7) 08/05/22 15:50 Ur Specific [place] 1.015 (1.005-1.030) 08/05/22 15:50 Urine Protein Neg (Negative) 08/05/22 15:50 Urine Glucose (UA) Norm (Normal) 08/05/22 15:50 Urine Ketones Negative (Negative) 08/05/22 15:50 Urine Blood Neg (Negative) 08/05/22 15:50 Urine Nitrate Positive (Negative) H 08/05/22 15:50 Urine Bilirubin Neg (Negative) 08/05/22 15:50 Urine Urobilinogen Norm mg/dL (Negative) 08/05/22 15:50 Ur Leukocyte Esterase Negative (Negative) 08/05/22 15:50 Urine RBC 0-4 /hpf (0-2) H 08/05/22 15:50 Urine WBC 0-4 /hpf (0-5) H 08/05/22 15:50 Ur Squamous Epith Cells 0-4 /hpf (0-5) H 08/05/22 15:50 Amorphous Sediment Not Reportable 08/05/22 15:50 Urine Bacteria 4+ /hpf (NONE) H 08/05/22 15:50 Salicylates < 0.3 mg/dL (3-10) L 08/05/22 15:57 Urine Opiates Screen Negative ng/mL (Negative) 08/05/22 15:50 Acetaminophen 5.2 ug/mL (10-30) L 08/05/22 15:57 Ur Barbiturates Screen Negative ng/mL (Negative) 08/05/22 15:50 Ur Phencyclidine Scrn Negative ng/mL (Negative) 08/05/22 15:50 Ur Amphetamines Screen Negative ng/mL (Negative) 08/05/22 15:50 U Benzodiazepines Scrn Negative ng/mL (Negative) 08/05/22 15:50 Urine Cocaine Screen Negative ng/mL (Negative) 08/05/22 15:50 U Marijuana (THC) Screen Positive ng/mL (Negative) H 08/05/22 15:50 Ethyl Alcohol < 10 mg/dL (0-10) 08/05/22 15:57 Discharge Plan Discharge Patient Disposition: Admitted As Inpatient Clinical Impression: Acute psychosis Condition: Stable Coding Level of Care Code ED Fast Foods Worker for Chg Fwd Exam Detailed Documented by User: Gerard Staley MD 08/05/22 21:59 HPI - Psych General: Chief Complaint: Psychiatric Symptoms Stated Complaint: Doesn't feel safe Time Seen by Provider: 08/05/22 14:45 PFSH ED PFSH: Medical History Borderline personality disorder Cannabis dependence, uncomplicated Major depressive disorder, recurrent, moderate Migraine headache Mixed incontinence Nicotine dependence, cigarettes, uncomplicated Post-traumatic stress disorder, chronic Psychiatric care Surgical History H/O tubal ligation H/O: hysterectomy (~2003) LAVH/BSO Performed due to bleeding. Status post colonoscopy (05/27/20) polyps Family History Mother Thyroid disease Grandfather Diabetes Maternal Hypertension Maternal Denies family history of Colon cancer Ovarian cancer Heart disease Hyperlipidemia Breast cancer Bleeding disorder Uterine cancer Stroke Social History Smoking and tobacco status: current every day smoker cigarettes Packs smoked per day: 1.5 Years cigarettes smoked: 34 Quit status (tobacco): has tried quititng Second hand smoke exposure: Yes Alcohol intake: never Adopted: No Caregiver/support person: No Lives independently: Yes Household members: children Housing: Apartment Marital status: Marital status details: well over 10 years ago Number of children: 4 Number of grandchildren: 5 Highest education level completed: 10th Grade service: No Current occupational status: disabled Pets and animals: Yes Pets & animals: dog(s) History of recent travel: Yes (PSR outing to [place] and [place] twice) Out of state: Yes Leisure activites: art, music, reading and other Leisure activities details: research, nature Sexually active: No Current gender identity: Female Katie/Latter-Day: Caodaism Special katie needs: No Agree to transfusion: Yes Financial difficulty paying for basics: Not Very Hard Course Vital Signs: Vital signs: Vital Signs Temperature 98.1 F 08/05/22 23:00 Pulse Rate 68 08/05/22 23:00 Respiratory Rate 16 08/05/22 23:00 Blood Pressure 137/81 08/05/22 23:00 Pulse Oximetry 96 08/05/22 23:00 Oxygen Delivery Me thod 08/05/22 23:00 MDM - Psych Medical Decision Making Patient presents here with acute psychosis with hallucinations patient placed on a 96-hour hold I spoke to Dr. Judge of admit. Lab Data : 08/05/22 15:57 08/05/22 15:57 Laboratory Results WBC 10.9 10^3/uL (4.0-10.0) H 08/05/22 15:57 RBC 4.68 10^6/uL (4.1-5.3) 08/05/22 15:57 Hgb 15.2 g/dL (11.5-15.3) 08/05/22 15:57 Hct 45.6 % (37.0-47.0) 08/05/22 15:57 MCV 97.4 fl (81-99) 08/05/22 15:57 MCH 32.5 pg (28.0-34.0) 08/05/22 15:57 MCHC 33.3 g/dL (30.0-36.0) 08/05/22 15:57 RDW 12.1 % (12.1-15.1) 08/05/22 15:57 Plt Count 265 10^3/cmm (130-400) 08/05/22 15:57 MPV 9.2 fL (7.4-10.4) 08/05/22 15:57 Neut % (Auto) 54.5 % 08/05/22 15:57 Lymph % (Auto) 37.7 % 08/05/22 15:57 [place] % (Auto) 6.0 % 08/05/22 15:57 Eos % (Auto) 1.1 % 08/05/22 15:57 Baso % (Auto) 0.3 % 08/05/22 15:57 Neut # (Auto) 5.95 10^3/uL (1.8-7.7) 08/05/22 15:57 Lymph # (Auto) 4.1 10^3/uL (0.8-4.8) 08/05/22 15:57 [place] # (Auto) 0.7 10^3/uL (0.2-0.9) 08/05/22 15:57 Eos # (Auto) 0.1 10^3/uL (0.0-0.8) 08/05/22 15:57 Baso # (Auto) 0.0 10^3/uL (0.0-0.1) 08/05/22 15:57 Nucleated RBC % (auto) 0 % 08/05/22 15:57 Nucleated RBCs # 0.0 /100WBC 08/05/22 15:57 Sodium 138 mmol/L (136-145) 08/05/22 15:57 Potassium 3.2 mmol/L (3.5-5.1) L 08/05/22 15:57 Chloride 100 mmol/L (98-107) 08/05/22 15:57 Carbon Dioxide 29 mmol/L (22-29) 08/05/22 15:57 Anion Gap 12.2 (5-19) 08/05/22 15:57 BUN 8 mg/dL (6-20) 08/05/22 15:57 Creatinine 0.8 mg/dL (0.5-0.9) 08/05/22 15:57 GFR Calculation 75.3 mL/min (90-130) L 08/05/22 15:57 Glucose 85 mg/dL (65-115) 08/05/22 15:57 Calculated Osmolality 284 mOsm/kg (285-295) L 08/05/22 15:57 Calcium 9.8 mg/dL (8.5-10.5) 08/05/22 15:57 Total Bilirubin 0.4 mg/dL (0.15-1.2) 08/05/22 15:57 AST 14 U/L (0-32) 08/05/22 15:57 ALT 10 U/L (0-33) 08/05/22 15:57 Alkaline Phosphatase 107 U/L (35-105) H 08/05/22 15:57 Total Protein 7.5 g/dL (6.6-8.7) 08/05/22 15:57 Albumin 4.6 g/dL (3.5-5.2) 08/05/22 15:57 Globulin 2.9 g/dL (1.3-4.6) 08/05/22 15:57 Urine Color Yellow (Yellow) 08/05/22 15:50 Urine Appearance Sl hazy (CLEAR) 08/05/22 15:50 Urine pH 6 (5-7) 08/05/22 15:50 Ur Specific [place] 1.015 (1.005-1.030) 08/05/22 15:50 Urine Protein Neg (Negative) 08/05/22 15:50 Urine Glucose (UA) Norm (Normal) 08/05/22 15:50 Urine Ketones Negative (Negative) 08/05/22 15:50 Urine Blood Neg (Negative) 08/05/22 15:50 Urine Nitrate Positive (Negative) H 08/05/22 15:50 Urine Bilirubin Neg (Negative) 08/05/22 15:50 Urine Urobilinogen Norm mg/dL (Negative) 08/05/22 15:50 Ur Leukocyte Esterase Negative (Negative) 08/05/22 15:50 Urine RBC 0-4 /hpf (0-2) H 08/05/22 15:50 Urine WBC 0-4 /hpf (0-5) H 08/05/22 15:50 Ur Squamous Epith Cells 0-4 /hpf (0-5) H 08/05/22 15:50 Amorphous Sediment Not Reportable 08/05/22 15:50 Urine Bacteria 4+ /hpf (NONE) H 08/05/22 15:50 Salicylates < 0.3 mg/dL (3-10) L 08/05/22 15:57 Urine Opiates Screen Negative ng/mL (Negative) 08/05/22 15:50 Acetaminophen 5.2 ug/mL (10-30) L 08/05/22 15:57 Ur Barbiturates Screen Negative ng/mL (Negative) 08/05/22 15:50 Ur Phencyclidine Scrn Negative ng/mL (Negative) 08/05/22 15:50 Ur Amphetamines Screen Negative ng/mL (Negative) 08/05/22 15:50 U Benzodiazepines Scrn Negative ng/mL (Negative) 08/05/22 15:50 Urine Cocaine Screen Negative ng/mL (Negative) 08/05/22 15:50 U Marijuana (THC) Screen Positive ng/mL (Negative) H 08/05/22 15:50 Ethyl Alcohol < 10 mg/dL (0-10) 08/05/22 15:57 Discharge Plan Discharge Patient Disposition: Admitted As Inpatient Clinical Impression: Acute psychosis Condition: Stable Coding Level of Care Code ED Fast Foods Worker for Vane Lynch Exam Detailed
[2022-08-05 16:02] LABS: Basophils % 0.3 %; Eosinophils # 0.1 10^3/uL (0.0-0.8); Eosinophils % 1.1 %; Hematocrit 45.6 % (37.0-47.0); Hemoglobin 15.2 g/dL (11.5-15.3); Lymphocytes # 4.1 10^3/uL (0.8-4.8); Lymphocytes % 37.7 %; Mean Corpuscular HGB Conc 33.3 g/dL (30.0-36.0); Mean Corpuscular Hemoglobin 32.5 pg (28.0-34.0); Mean Corpuscular Volume 97.4 fl (81-99); Mean Platelet Volume 9.2 fL (7.4-10.4); Monocytes # 0.7 10^3/uL (0.2-0.9); Neutrophils # 5.95 10^3/uL (1.8-7.7); Neutrophils % 54.5 %; Nucleated Red Blood Cells % 0 %; Platelet Count 265 10^3/cmm (130-400); Red Blood Count 4.68 10^6/uL (4.1-5.3); Red Cell Distribution Width 12.1 % (12.1-15.1); White Blood Count 10.9 10^3/uL (4.0-10.0)
[2022-08-05 16:14] VITALS: BP 131/78; PULSE 74; RESP 16; TEMP 36.7; O2SAT 95
[2022-08-05] MEDS: nicotine 21 mg Patch 1 PATCH TRANSDERMA (16:26)
[2022-08-05 16:27] LABS: Alanine Aminotransferase 10 U/L (0-33); Albumin Level 4.6 g/dL (3.5-5.2); Alkaline Phosphatase 107 U/L (35-105); Anion Gap 12.2 (5-19); Aspartate Amino Transferase 14 U/L (0-32); Blood Urea Nitrogen 8 mg/dL (6-20); Calcium 9.8 mg/dL (8.5-10.5); Carbon Dioxide 29 mmol/L (22-29); Chloride 100 mmol/L (98-107); Globulin 2.9 g/dL (1.3-4.6); Glomerular Filtration Rate 75.3 mL/min (90-130); Glucose 85 mg/dL (65-115); Osmolality Calculated 284 mOsm/kg (285-295); Potassium 3.2 mmol/L (3.5-5.1); Sodium 138 mmol/L (136-145); Total Bilirubin 0.4 mg/dL (0.15-1.2); Total Protein 7.5 g/dL (6.6-8.7)
[2022-08-05 16:32] LABS: Amphetamines Screen Urine Negative (Negative); Barbiturates Screen Urine Negative (Negative); Benzodiazepines Screen Urine Negative (Negative); Cocaine Screen Urine Negative (Negative); Opiate Screen Urine Negative (Negative); PCP Screen Urine Negative (Negative); THC Screen Urine Positive (Negative)
[2022-08-05 16:36] LABS: Add Urine Culture? Yes; Add Urine Microscopic? YES; Bacteria Urine 4+ /hpf; Bilirubin Urine Neg (Negative); Blood Urine Neg (Negative); Glucose Urine UA Norm (Normal); Ketones Urine Negative (Negative); Leukocyte Esterase Urine Negative (Negative); Nitrate Urine Positive (Negative); Protein Urine Neg (Negative); RBC Urine 0-4 /hpf (0-2); Specific Gravity, Urine 1.015 (1.005-1.030); Squamous Epithelial Cell Urine 0-4 /hpf (0-5); Urine Appearance SL Hazy (CLEAR); Urine Color Yellow (Yellow); Urobilinogen Urine Norm (Negative); WBC Urine 0-4 /hpf (0-5); pH Urine 6 (5-7)
[2022-08-05 18:00] VITALS: BP 131/78; PULSE 74; RESP 16; TEMP 36.7; O2SAT 95
--- NOTE | 2022-08-05 19:10 | PC.NURSE ---
REPORT GIVEN TO YOLY Bowers RN ASSUMED CARE.
[2022-08-05 19:56] LABS: Acetaminophen 5.2 ug/mL (10-30)
[2022-08-05 19:57] LABS: Alcohol Level < 10 mg/dL (0-10); Salicylate < 0.3 mg/dL (3-10)
[2022-08-05 23:00] VITALS: BP 137/81; PULSE 68; RESP 16; TEMP 36.7; O2SAT 96
[2022-08-05] MEDS: acetaminophen 325 mg Tablet 650 MG PO (23:14)
[2022-08-06 09:40] VITALS: BP 153/70; PULSE 80; RESP 16; TEMP 36.7; O2SAT 96
[2022-08-06] MEDS: acetaminophen 325 mg Tablet 650 MG PO ×2 (09:51→21:46)
[2022-08-06] MEDS: nicotine 21 mg Patch 1 PATCH TRANSDERMA (09:51)
[2022-08-06 14:00] VITALS: BP 140/68; PULSE 80; RESP 16; TEMP 36.7; O2SAT 96
[2022-08-06 15:04] VITALS: BP 140/68; PULSE 80; RESP 16; TEMP 36.7; O2SAT 96
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
[2022-08-06 20:19] VITALS: BP 118/70; PULSE 60; RESP 16; TEMP 36.3; O2SAT 98
[2022-08-06] MEDS: BuSPIRONE 10 mg Tablet 15 MG PO (21:46)
[2022-08-06] MEDS: sertraline 100 mg Tablet PO (21:46)
[2022-08-07] MEDS: blistex lip oint 7 gm Tube 1 APPLIC TOPICAL (03:24)
[2022-08-07] MEDS: acetaminophen 325 mg Tablet 650 MG PO ×2 (03:49→10:57)
[2022-08-07 06:00] VITALS: BP 111/66; PULSE 81; RESP 18; TEMP 36.6; O2SAT 96
[2022-08-07] MEDS: oxybutynin chloride XL 5 MG TABLET 10 MG PO (09:26)
[2022-08-07] MEDS: sertraline 100 mg Tablet PO ×2 (09:26→20:33)
[2022-08-07] MEDS: meloxicam 7.5 mg tablet 15 MG PO (09:26)
[2022-08-07] MEDS: BuSPIRONE 10 mg Tablet 15 MG PO ×3 (09:27→20:32)
[2022-08-07] MEDS: nicotine 21 mg Patch 1 PATCH TRANSDERMA (09:42)
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
[2022-08-07] MEDS: hyDROXYzine 25 mg Capsule 50 MG PO (14:07)
[2022-08-07] MEDS: OLANZapine 5 mg ODT PO (14:07)
[2022-08-07] MEDS: ibuprofen 600 mg Tablet PO ×2 (15:27→20:32)
[2022-08-07 15:29] VITALS: BP 121/69; PULSE 58; RESP 18; TEMP 36.6; O2SAT 94
[2022-08-07] MEDS: paliperidone ER 6 mg Tablet PO (18:34)
[2022-08-07 19:59] VITALS: BP 102/64; PULSE 88; RESP 18; TEMP 37; O2SAT 96
[2022-08-08 06:00] VITALS: BP 102/64; PULSE 88; RESP 18; TEMP 37; O2SAT 96; BMI 26.1
[2022-08-08 06:16] VITALS: BP 107/65; PULSE 66; RESP 18; TEMP 36.5; O2SAT 97
[2022-08-08] MEDS: BuSPIRONE 10 mg Tablet 15 MG PO ×3 (08:59→20:16)
[2022-08-08] MEDS: paliperidone ER 6 mg Tablet PO (09:00)
[2022-08-08] MEDS: sertraline 100 mg Tablet PO ×2 (09:00→20:16)
[2022-08-08] MEDS: oxybutynin chloride XL 5 MG TABLET 10 MG PO (09:00)
[2022-08-08] MEDS: meloxicam 7.5 mg tablet 15 MG PO (09:00)
[2022-08-08] MEDS: ibuprofen 600 mg Tablet PO ×3 (09:01→20:16)
[2022-08-08] MEDS: nicotine 21 mg Patch 1 PATCH TRANSDERMA (09:02)
[2022-08-08 14:00] VITALS: BP 127/87; PULSE 68; RESP 18; TEMP 36.7; O2SAT 98
--- NOTE | 2022-08-08 18:46 | W.PM.NPUPNS ---
Subjective NPU Subjective: Patient presented today struggling with some of the agitation of other patients in the milieu. Particularly her roommate was quite agitated and causing problems for multiple individuals. She was starting to get agitated and even though we were planning to have a room change, she was demanding having room change. Otherwise she reported that the Invega working really well and she continues to endorse a desire to change to the injectable version and continues to show this kind of improvement. Mental Status Exam MSE Comments: This is an overweight white female with boudreaux hair, limited grooming and eye contact. No abnormal movements. Cooperative with exam in mild to moderate distress. Speech was increased rate, slightly pressured and at times increased volume. Mood described as frail, affect is congruent. Thought process, organized. Thought content: patient denies suicidal or homicidal, endorses paranoia but no delusions noted and endorses auditory and visual hallucinations. Attention and concentration are mostly intact and memory appeared reliable but none were formally tested. She is alert and oriented x3. Insight appears fair, judgment impaired impulse control impaired. Vitals/I&O/Wt Last Vital Signs Temp 98.2 F 08/08/22 20:09 Pulse 85 08/08/22 20:09 Resp 17 08/08/22 20:09 BP 114/74 08/08/22 20:09 Pulse Ox 98 08/08/22 20:09 O2 Del Method 08/07/22 15:29 Weight last 48 hrs Weight 73.482 kg Data NPU : 08/05/22 15:57 08/05/22 15:57 A&P Assessment and plan (1) Acute psychosis: Status: Acute (2) Post-traumatic stress disorder, chronic: Status: Acute (3) Borderline personality disorder: Status: Acute (4) Nicotine dependence, cigarettes, uncomplicated: Status: Acute Plan This is a 51 year old white female with a history of trauma and genetic loading for mental health, addiction and lethality issues who presents with recent mental health issues endorsing some success on previous medications and an openness to restart medications. 1. Continue current medications. Started Invega 6 mg daily with eventual transition to the injectable. 2. Encourage individual, group and milieu therapy 3. Continue q-15 minute check for safety 4. Recommend sober living treatment at the highest level of care to which the patient is willing to commit. Involuntary Hold Information 96 Hour Hold: 96 Hour Involuntary Admission: Yes 96 Hour Hold Ending Date: 08/12/22 96 Hour Hold Ending Time: 15:10 Attestations NPU Medical Necessity Statement*: Inpatient hospitalization is medically necessary and the clinically appropriate intervention at this time. We will monitor medications and make changes as indicated. Likely length of stay is 4-6 days. Coding Level of Care Code Acute Associate Biological Sales for [facility] Fwd Diagnoses Acute psychosis F23 Post-traumatic stress disorder, chronic F43.12 Borderline personality disorder F60.3 Nicotine dependence, cigarettes, uncomplicated F17.210
[2022-08-08 20:09] VITALS: BP 114/74; PULSE 85; RESP 17; TEMP 36.8; O2SAT 98
[2022-08-09 06:00] VITALS: BP 116/74; PULSE 90; RESP 18; TEMP 36.7; O2SAT 99
[2022-08-09] MEDS: acetaminophen 325 mg Tablet 650 MG PO ×4 (06:20→22:36)
[2022-08-09] MEDS: levoFLOXacin 750 mg Tablet PO (06:24)
[2022-08-09] MEDS: oxybutynin chloride XL 5 MG TABLET 10 MG PO (08:07)
[2022-08-09] MEDS: paliperidone ER 6 mg Tablet PO (08:08)
[2022-08-09] MEDS: BuSPIRONE 10 mg Tablet 15 MG PO ×3 (08:08→21:03)
[2022-08-09] MEDS: meloxicam 7.5 mg tablet 15 MG PO (08:08)
[2022-08-09] MEDS: ibuprofen 600 mg Tablet PO ×3 (08:08→21:09)
[2022-08-09] MEDS: sertraline 100 mg Tablet PO ×2 (08:08→21:09)
[2022-08-09] MEDS: nicotine 21 mg Patch 1 PATCH TRANSDERMA (08:11)
--- NOTE | 2022-08-09 08:18 | PC.NURSE ---
shift assessment cooperative with care, bright affect, states she is hearing her grandpa voice in her head, saying her name
--- NOTE | 2022-08-09 11:13 | W.PM.NPUPNS ---
Subjective NPU Subjective: Patient presents today reporting that she feels significantly better. Her psychomotor agitation had notably decreased per staff. She reports that her thoughts are more trackable. Discussed again the plan for Invega Sustenna and she reports wanting to move forward with that. We discussed her 96 hour hold ending on and beginning to make arrangements for the shot to be managed at [facility] and her to continue with her outpatient providers. Mental Status Exam MSE Comments: This is an overweight white female with boudreaux hair, improved grooming and eye contact. No abnormal movements. Cooperative with exam in mild distress. Speech was more normal rate, less pressured with normal volume. Mood described as better, affect is congruent. Thought process, organized. Thought content: patient denies suicidal or homicidal, he denies delusions and no delusions noted, and she denied auditory and visual hallucinations. Attention and concentration are mostly intact and memory appeared reliable but none were formally tested. She is alert and oriented x3. Insight appears fair, judgment improving and impulse control improving. Vitals/I&O/Wt Last Vital Signs Temp 98.0 F 08/09/22 06:00 Pulse 90 08/09/22 06:00 Resp 18 08/09/22 06:00 BP 116/74 08/09/22 06:00 Pulse Ox 99 08/09/22 06:00 O2 Del Method 08/09/22 06:00 Weight last 48 hrs Weight 73.482 kg Data NPU : 08/05/22 15:57 08/05/22 15:57 A&P Assessment and plan (1) Acute psychosis: Status: Acute (2) Post-traumatic stress disorder, chronic: Status: Acute (3) Borderline personality disorder: Status: Acute (4) Nicotine dependence, cigarettes, uncomplicated: Status: Acute Plan This is a 51 year old white female with a history of trauma and genetic loading for mental health, addiction and lethality issues who presents with recent mental health issues endorsing some success on previous medications and an openness to restart medications. 1. Continue current medications. Started Invega 6 mg daily and will start Invega Sustenna 234 mg IM deltoid. 2. Encourage individual, group and milieu therapy 3. Continue q-15 minute check for safety 4. Recommend sober living treatment at the highest level of care to which the patient is willing to commit. Involuntary Hold Information 96 Hour Hold: 96 Hour Involuntary Admission: Yes 96 Hour Hold Ending Date: 08/12/22 96 Hour Hold Ending Time: 15:10 Attestations NPU Medical Necessity Statement*: Inpatient hospitalization is medically necessary and the clinically appropriate intervention at this time. We will monitor medications and make changes as indicated. Likely length of stay is 3-5 days. Coding Level of Care Code Acute Principal Technical Writer for [facility] Fwd Diagnoses Acute psychosis F23 Post-traumatic stress disorder, chronic F43.12 Borderline personality disorder F60.3 Nicotine dependence, cigarettes, uncomplicated F17.210
[2022-08-09] MEDS: hyDROXYzine 25 mg Capsule 50 MG PO (11:54)
[2022-08-09 14:00] VITALS: BP 130/85; PULSE 81; RESP 17; O2SAT 99
[2022-08-09 20:14] VITALS: BP 122/83; PULSE 76; RESP 18; TEMP 36.8; O2SAT 97
[2022-08-10] MEDS: magnesium hydroxide 30 mL UDC PO ×2 (01:28→21:13)
--- NOTE | 2022-08-10 03:09 | PC.NURSE ---
Medicated with Milk of Magnesia,Patient stated she had results from it.
[2022-08-10 06:00] VITALS: BP 150/79; PULSE 93; RESP 18; O2SAT 97
[2022-08-10] MEDS: levoFLOXacin 750 mg Tablet PO (06:04)
[2022-08-10] MEDS: oxybutynin chloride XL 5 MG TABLET 10 MG PO (07:49)
[2022-08-10] MEDS: paliperidone ER 6 mg Tablet PO (07:50)
[2022-08-10] MEDS: meloxicam 7.5 mg tablet 15 MG PO (07:50)
[2022-08-10] MEDS: ibuprofen 600 mg Tablet PO ×3 (07:50→19:51)
[2022-08-10] MEDS: sertraline 100 mg Tablet PO ×2 (07:50→19:52)
[2022-08-10] MEDS: BuSPIRONE 10 mg Tablet 15 MG PO ×3 (07:50→19:51)
[2022-08-10] MEDS: blistex lip oint 7 gm Tube 1 APPLIC TOPICAL (09:12)
[2022-08-10] MEDS: nicotine 21 mg Patch 1 PATCH TRANSDERMA (09:42)
[2022-08-10] MEDS: acetaminophen 325 mg Tablet 650 MG PO (11:35)
[2022-08-10 14:00] VITALS: BP 127/84; PULSE 87; RESP 20; TEMP 36.8; O2SAT 91
--- NOTE | 2022-08-10 15:53 | P.NPUPN_ITS ---
Subjective NPU Subjective: Patient presents today starting to decrease her psychomotor agitation. Able to be more clear and calculated in her responses. No real signs of meandering thoughts. Accepting of plan for long-acting injection. We discussed initiating the 234 mg IM to the deltoid Invega Sustenna with a plan for discharge by . Mental Status Exam 2 MSE Comments: This is an overweight white female with boudreaux hair, improved grooming and eye contact. No abnormal movements. Cooperative with exam in mild distress. Speech was more normal rate, less pressured with normal volume. Mood described as better, affect is congruent. Thought process, organized. Thought content: patient denies suicidal or homicidal, he denies delusions and no delusions noted, and she denied auditory and visual hallucinations. Attention and concentration are mostly intact and memory appeared reliable but none were formally tested. She is alert and oriented x3. Insight appears fair, judgment improving and impulse control improving. Vitals/I&O/Wt Last Vital Signs Temp 98.3 F 08/10/22 14:00 Pulse 87 08/10/22 14:00 Resp 20 H 08/10/22 14:00 BP 127/84 08/10/22 14:00 Pulse Ox 91 08/10/22 14:00 O2 Del Method 08/10/22 14:00 Data NPU : 08/05/22 15:57 08/05/22 15:57 A&P Assessment and plan (1) Acute psychosis: Status: Acute (2) Post-traumatic stress disorder, chronic: Status: Acute (3) Borderline personality disorder: Status: Acute (4) Nicotine dependence, cigarettes, uncomplicated: Status: Acute Plan This is a 51 year old white female with a history of trauma and genetic loading for mental health, addiction and lethality issues who presents with recent mental health issues endorsing some success on previous medications and an openness to restart medications. 1. Continue current medications. Started Invega 6 mg daily and initiated loading dose Invega Sustenna 234 mg IM deltoid. 2. Encourage individual, group and milieu therapy 3. Continue q-15 minute check for safety 4. Recommend sober living treatment at the highest level of care to which the patient is willing to commit. Involuntary Hold Information 96 Hour Hold: 96 Hour Involuntary Admission: Yes 96 Hour Hold Ending Date: 08/12/22 96 Hour Hold Ending Time: 15:10 Attestations NPU 2 Medical Necessity Statement*: Inpatient hospitalization is medically necessary and the clinically appropriate intervention at this time. We will monitor medica tions and make changes as indicated. Likely length of stay is 2 days. Coding Level of Care Code Acute Director [employer] for [facility] Fwd Diagnoses Acute psychosis F23 Post-traumatic stress disorder, chronic F43.12 Borderline personality disorder F60.3 Nicotine dependence, cigarettes, uncomplicated F17.210
[2022-08-10] MEDS: paliperidone palmitate 234 mg Syringe IM (17:00)
[2022-08-10 21:09] VITALS: BP 155/81; PULSE 82; RESP 20; TEMP 36.8; O2SAT 97
[2022-08-11] MEDS: acetaminophen 325 mg Tablet 650 MG PO (03:58)
[2022-08-11 06:00] VITALS: BP 130/85; PULSE 71; RESP 20; TEMP 36.8; O2SAT 94
[2022-08-11] MEDS: levoFLOXacin 750 mg Tablet PO (07:06)
--- NOTE | 2022-08-11 08:00 | PC.NURSE ---
shift assessment bright affect, in day room visiting in calm manner with another patient, patient says she is hearing her grandpa voice in her head, and occasionally sees him in her room
[2022-08-11] MEDS: paliperidone ER 6 mg Tablet PO (08:26)
[2022-08-11] MEDS: ibuprofen 600 mg Tablet PO ×3 (08:26→20:42)
[2022-08-11] MEDS: meloxicam 7.5 mg tablet 15 MG PO (08:26)
[2022-08-11] MEDS: oxybutynin chloride XL 5 MG TABLET 10 MG PO (08:26)
[2022-08-11] MEDS: sertraline 100 mg Tablet PO ×2 (08:27→20:43)
[2022-08-11] MEDS: BuSPIRONE 10 mg Tablet 15 MG PO ×3 (08:27→20:43)
[2022-08-11] MEDS: nicotine 21 mg Patch 1 PATCH TRANSDERMA (08:29)
[2022-08-11 14:00] VITALS: BP 118/82; PULSE 101; RESP 18; TEMP 36.6; O2SAT 97
--- NOTE | 2022-08-11 15:55 | P.NPUPN_ITS ---
Subjective NPU Subjective: Patient presented today reporting that she was a bit thrown off by interactions with 2 of the other patients today. We discussed the importance of her maintaining her own sensibilities. She did receive a first Invega Sustenna injection. She denies any issues with that. We discussed the plan for discharge in the morning. Mental Status Exam MSE Comments: This is an overweight white female with boudreaux hair, improved grooming and eye contact. No abnormal movements. Cooperative with exam in mild distress. Speech was more normal rate, with more normal rate and normal volume. Mood described as anxious from today, affect is congruent. Thought process, organized. Thought content: patient denies suicidal or homicidal, he denies delusions and no delusions noted, and she denied auditory and visual hallucinations. Attention and concentration are mostly intact and memory appeared reliable but none were formally tested. She is alert and oriented x3. Insight appears fair, judgment improving and impulse control improving. Vitals/I&O/Wt Last Vital Signs Temp 98.2 F 08/11/22 22:00 Pulse 85 08/11/22 22:00 Resp 17 08/11/22 22:00 BP 120/83 08/11/22 22:00 Pulse Ox 97 08/11/22 22:00 O2 Del Method 08/11/22 22:00 Data NPU : 08/05/22 15:57 08/05/22 15:57 A&P Assessment and plan (1) Acute psychosis: Status: Acute (2) Post-traumatic stress disorder, chronic: Status: Acute (3) Borderline personality disorder: Status: Acute (4) Nicotine dependence, cigarettes, uncomplicated: Status: Acute Plan This is a 51 year old white female with a history of trauma and genetic loading for mental health, addiction and lethality issues who presents with recent mental health issues endorsing some success on previous medications and an openness to restart medications. 1. Continue current medications. Started Invega 6 mg daily and initiated loading dose Invega Sustenna 234 mg IM deltoid will need second injection next week.. 2. Encourage individual, group and milieu therapy 3. Continue q-15 minute check for safety 4. Recommend sober living treatment at the highest level of care to which the patient is willing to commit. Involuntary Hold Information 96 Hour Hold: 96 Hour Involuntary Admission: Yes 96 Hour Hold Ending Date: 08/12/22 96 Hour Hold Ending Time: 15:10 Attestations NPU Medical Necessity Statement*: Inpatient hospitalization is medically necessary and the clinically appropriate intervention at this time. We will monitor medications and make changes as indicated. Likely length of stay is 1 day. Plan for discharge tomorrow. Coding Level of Care Code Acute Concrete Mixing Truck Driver for [facility] Fwd Diagnoses Acute psychosis F23 Post-traumatic stress disorder, chronic F43.12 Borderline personality disorder F60.3 Nicotine dependence, cigarettes, uncomplicated F17.210
[2022-08-11] MEDS: hyDROXYzine 25 mg Capsule 50 MG PO (20:42)
[2022-08-11] MEDS: trazodone 50 mg Tablet PO ×2 (20:43→22:10)
[2022-08-11 22:00] VITALS: BP 120/83; PULSE 85; RESP 17; TEMP 36.8; O2SAT 97
[2022-08-12] MEDS: levoFLOXacin 750 mg Tablet PO (05:27)
[2022-08-12 06:00] VITALS: BP 122/88; PULSE 97; RESP 15; TEMP 36.6; O2SAT 97
[2022-08-12] MEDS: meloxicam 7.5 mg tablet 15 MG PO (08:30)
[2022-08-12] MEDS: paliperidone ER 6 mg Tablet PO (08:30)
[2022-08-12] MEDS: BuSPIRONE 10 mg Tablet 15 MG PO (08:30)
[2022-08-12] MEDS: ibuprofen 600 mg Tablet PO (08:30)
[2022-08-12] MEDS: sertraline 100 mg Tablet PO (08:30)
[2022-08-12] MEDS: oxybutynin chloride XL 5 MG TABLET 10 MG PO (08:30)
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
[2022-08-12 13:38] VITALS: BP 122/88; PULSE 97; RESP 15; TEMP 36.6; O2SAT 97
== END 2022-08-12 14:30 | disposition home or self-care (01) | DRG 885 ==
LOC: ER 23:21 → NP 08-06 20:20
PROVIDERS: Nurse Practitioner Family; Admitting Provider Psychiatry & Neurology Psychiatry; Emergency Provider Emergency Medicine; PCP Family Medicine; Visit Provider Psychiatry & Neurology Psychiatry
DX: F23 Brief psychotic disorder (principal); F43.12 Post-traumatic stress disorder, chronic; F60.3 Borderline personality disorder; F17.210 Nicotine dependence, cigarettes, uncomplicated; Z81.8 Family history of other mental and behavioral disorders; Z62.810 Personal history of physical and sexual abuse in childhood; Z91.410 Personal history of adult physical and sexual abuse; Z91.411 Personal history of adult psychological abuse; Z86.69 Personal history of other diseases of the nervous system and sense organs
CPT/HCPCS: 80053; 80306; 80307; 81001; 85025; 87077; 87086; 87186; 90935; 93005; 96372; 97150; 97165; 97166; 99285

== ENCOUNTER 2023-07-10 11:28 | Inpatient (IN) | payer MEDICAID, SELFPAY ==
[2023-03-17 07:20] VITALS: BP 115/76; BMI 27.3
[2023-07-10] VITALS (20 sets, daily range): BP systolic 99–155; BP diastolic 69–100; PULSE 77–127; RESP 16–25; TEMP 36.4–36.9; O2SAT 81–95
--- NOTE | 2023-07-10 11:37 | ECG_ITS ---
[facility] Test Date: 2023-07-10 Pat Name: Lauren Bae Department: Room: Gender: Female [place]: : 1970 Requested By: Gonzalo Aden Order Number: [id number] Reading MD: Deo Brar M.D. Measurements Intervals [place] Rate: 116 P: 85 WI: 136 QRS: 82 QRSD: 83 T: 51 QT: 341 QTc: 474 Interpretive Statements SINUS TACHYCARDIA NONSPECIFIC ST & T-WAVE ABNORMALITY ABNORMAL RHYTHM ECG Compared to ECG 08/05/2022 16:39:30 Sinus bradycardia no longer present T-wave abnormality still present Electronically Signed On 07-10-2023 18:24:03 CDT by Deo Brar M.D. [id number]
--- NOTE | 2023-07-10 11:38 | XRR_ITS ---
PROCEDURE INFORMATION: Exam: XR Chest Exam date and time: 07/10/2023 12:53 PM Age: 52 years old Clinical indication: Shortness of breath; Additional info: SOB, hypoxia, cp TECHNIQUE: Imaging protocol: Radiologic exam of the chest. Views: 1 view. COMPARISON: No relevant prior studies available. FINDINGS: Lungs: Nodular density at the right base measuring 0.9 cm. No pulmonary consolidation. Pleural spaces: No pleural effusion. No pneumothorax. Heart/Mediastinum: The cardiac silhouette is unremarkable. No gross evidence of pneumomediastinum. Bones/joints: No gross fracture. XR/XR chest 1V portable [id number] IMPRESSION: Nodular density at the right base measuring 0.[address] chest to better characterize.
[2023-07-10 11:57] LABS: Basophils # 0.1 10^3/uL (0.0-0.1); Basophils % 0.4 %; Eosinophils # 0.2 10^3/uL (0.0-0.8); Eosinophils % 1.2 %; Hematocrit 45.2 % (37.0-47.0); Hemoglobin 14.9 g/dL (11.5-15.3); Lymphocytes # 2.6 10^3/uL (0.8-4.8); Mean Corpuscular Hemoglobin 30.8 pg (28.0-34.0); Mean Corpuscular Volume 93.6 fl (81-99); Mean Platelet Volume 9.3 fL (7.4-10.4); Monocytes # 0.8 10^3/uL (0.2-0.9); Monocytes % 6.2 %; Neutrophils # 9.29 10^3/uL (1.8-7.7); Neutrophils % 71.6 %; Nucleated Red Blood Cells % 0 %; Platelet Count 314 10^3/cmm (130-400); Red Blood Count 4.83 10^6/uL (4.1-5.3)
[2023-07-10 12:06] LABS: D Dimer <= 0.27 ug/mIFEU (0-0.59)
--- NOTE | 2023-07-10 12:06 | W.ED.SOB ---
HPI - SOB/Dyspnea General: Chief Complaint: Shortness of Breath/Dyspnea Stated Complaint: SOB, headache Time Seen by Provider: 07/10/23 11:33 History of Present Illness: HPI Narrative: Lauren Bae is a 52-year-old female that presents to the emergency department with complaints of chest pain and shortness of breath. Onset intermittently for 2 weeks. Restively worsening this morning. She arrives tachypneic, tachycardic in the 120s, hypoxic and hypertensive. Patient has a medical history that includes depression and anxiety Patient reports she quit smoking proximately 3 months ago Associated symptoms: Reports chest congestion, chest pain, nausea, orthopnea, palpitations and vomiting; Deny abdominal pain, dizziness, extremity pain, fever(s), polydipsia or polyuria Review of Systems General: Reports: 10 or more systems reviewed and unremarkable except in HPI and below Const: Reports: chills and fatigue; Denies: fever(s), change in appetite, change in weight or malaise Eyes: Denies: change in vision, eye discomfort, eye discharge or eye redness ENMT: Denies: throat pain, enlarged tonsils, odynophagia, hoarseness, ear or mastoid pain, ear discharge, change in hearing, tinnitus, nasal discharge, nasal congestion, post nasal drip or sinus pain Card: Reports: chest pain, palpitations, dyspnea on exertion and orthopnea; Denies: irregular heart rhythm, edema or leg pain with exertion Resp: Reports: dyspnea, productive cough and chest congestion; Denies: non-productive cough, wheezing or stridor GI: Reports: nausea and vomiting; Denies: abdominal pain, dysphagia, diarrhea, constipation, bloating, GI cramping or hematochezia : Denies: flank pain, difficulty voiding, dysuria, urinary frequency, urinary urgency, urinary hesitancy, oliguria or hematuria Musc: Denies: neck pain, back pain, extremity pain, joint pain, joint swelling, joint redness, joint warmth or muscle weakness Skin/Breast: Denies: rash, pruritus, erythema, photosensitivity or new lesions Neuro: Denies: headache(s), numbness in extremities, weakness in extremities, sensory changes, lack of coordination, difficulty walking, frequent falls, dizziness, confusion, Slurred speech present, difficulty communicating thoughts, seizure-like activity or involuntary movements Endo: Denies: polyuria, polydipsia or tired all the time [place]/Lymph: Denies: easy bruising or easy bleeding PFSH ED PFSH: Medical History Borderline personality disorder Cannabis dependence, uncomplicated Major depressive disorder, recurrent, moderate Migraine headache Mixed incontinence Nicotine dependence, cigarettes, uncomplicated Post-traumatic stress disorder, chronic Psychiatric care Surgical History H/O tubal ligation H/O: hysterectomy (~2003) LAVH/BSO Performed due to bleeding. Status post colonoscopy (05/27/20) polyps Family History Mother Thyroid disease Grandfather Diabetes Maternal Hypertension Maternal Denies family history of Colon cancer Ovarian cancer Heart disease Hyperlipidemia Breast cancer Bleeding disorder Uterine cancer Stroke Social History (Updated 07/10/23 @ 17:12 by Jens Cronin MD) Smoking and tobacco status: former smoker Quit status (tobacco): has tried quititng Number of times tried to quit tobacco: 4 Second hand smoke exposure: No Smoking risk assessment/counseling performed?: No Alcohol intake: former Year of sobriety/quit date alcohol: 2013 Desire information about alcohol rehabilitation?: No Counseling given: No Substance/Drug Use: former Date of last use: 2013 Desire information about substance/drug rehabilitation?: No Counseling given: No Adopted: No Caregiver/support person: No Lives independently: Yes Household members: children Housing: Apartment Marital status: Marital status details: well over 10 years ago Number of children: 4 Number of grandchildren: 5 Highest education level completed: 10th Grade service: No Current occupational status: disabled Pets and animals: Yes Pets & animals: dog(s) Leisure activites: art, music, reading and other Leisure activities details: research, nature Sexually active: No Do you think of yourself as: Straight/Heterosexual Current gender identity: Female Katie/Temple: Anglican Special katie needs: No Agree to transfusion: Yes Financial difficulty paying for basics: Not Very Hard Female Reproductive History: Para: 4 Spontaneous abortions: Yes (1 spontaneous abortions) Physical Exam Const: COMMON NORMALS: average body habitus, patient oriented x3 and alert GENERAL APPEARANCE: cooperative and in distress ORIENTATION/CONSCIOUSNESS: Yes awake, Yes oriented to person, Yes oriented to place and Yes oriented to time HENMT: COMMON NORMALS: normocephalic and atraumatic HEAD & SCALP: normocephalic and atraumatic FACE & SINUS: normal facial exam MOUTH: Normal oral and palatal mucosa present THROAT: posterior oropharynx normal Eye: COMMON NORMALS: Equal, round and reactive pupils present, EOMs intact bilaterally, conjunctivae normal and no scleral icterus GENERAL EYE: appearance normal, both eyes and all related structures ALIGNMENT: Yes alignment normal PERIORBITAL: periorbital findings normal CONJUNCTIVA: Yes conjunctivae normal PUPIL: Yes Equal, round and reactive pupils present Neck/C-Spine: COMMON NORMALS: full ROM GENERAL: Yes normal visual inspection Lymph: LYMPHATIC: no lymphadenopathy noted Chest: COMMONS NORMALS: normal inspection of the chest Breast/axilla inspection: Yes no chest deformity, asymmetry, normal contours, no nodules, masses, tenderness Resp: EFFORT & INSPECTION: Yes able to speak in complete sentences, Yes symmetric chest movement, Yes tachypneic, Yes labored and Yes audible wheezes AUSCULTATION: wheezes expiratory wheezes and throughout Cardio: COMMON NORMALS: regular rate, regular rhythm and Peripheral pulses 2+ throughout RATE: regular rate RHYTHM: regular rhythm PERIPHERAL PULSES: Peripheral pulses 2+ throughout GI: COMMON NORMALS: Normal to inspection, nondistended, normoactive bowel sounds present, Soft to palpation, non-tender and No hepatosplenomegaly present INSPECTION: Yes normal to inspection AUSCULTATION: Yes normoactive bowel sounds PALPATION: Yes Soft to palpation and Yes No hepatosplenomegaly present RECTAL EXAM: deferred Extremity: COMMON NORMALS: normal to inspection GENERAL: Yes normal exam except as noted Neuro: COMMON NORMALS: patient oriented x3 SENSORIUM/ORIENTATION: Yes alert, Yes oriented to person, Yes oriented to place and Yes oriented to time CRANIAL NERVES: Yes CN normal except as noted Psych: COMMON NORMALS: mental status grossly normal, Normal thought process present, cooperative, activity/motor behavior normal, denies homicidal ideation and denies suicidal ideation THOUGHT PROCESS: Normal thought process present Skin: COMMON NORMALS: no rashes or lesions noted, no wounds and turgor normal GENERAL SKIN EXAM: no rashes or lesions noted and turgor normal Course Vital Signs: Vital signs: Vital Signs Temperature 98.4 F 07/10/23 11:34 Pulse Rate 95 07/10/23 15:32 Respiratory Rate 18 07/10/23 15:09 Blood Pressure 116/74 07/10/23 15:32 Pulse Oximetry 86 L 07/10/23 16:13 Oxygen Delivery Me thod Nasal Cannula 07/10/23 15:32 Oxygen Flow Rate 6 07/10/23 16:13 MDM - SOB/Dyspnea Medical Decision Making Arrived in the emergency department with increased work of breathing, shortness of breath, hypoxia and tachycardia. Onset of symptoms about 2 weeks ago but progressively worsened this morning. Patient denies any calf pain or history of DVT/VTE. Patient was placed on the monitor and given 6 L by nasal cannula. DuoNeb treatment ordered. Recheck after initial intake reveals oxygen saturation of 96 on 6 L, pulse of 105 and tachypnea resolving. She has no increase in work of breathing at this time D-dimer within normal limits as is his troponin. He does have a leukocytosis 13,000. While she has not been diagnosed with COPD, she has a 30+ year smoking history. Patient's chest x-ray did reveal a pulmonary nodule that we followed up with CT. The CT reveals diffuse bronchiolitis. She has had several more treatments and has received steroids. I did have RT come by to ambulate her for home O2 needs. She requires 6 L to maintain an oxygen saturation of 89%. I talked with Dr. Fan who agrees that the patient does need to come in. Antibiotics given. Hospitalist consulted and at bedside at 1700. Dr. Burgos has evaluated the patient and is agreeable to admission. We are going to obtain a respiratory viral panel. Patient will be transported to the floor once bed assignment is available Lab Data 07/10/23 11:44 07/10/23 11:44 Labs/Radiology: Radiology Impressions Chest X-Ray 07/10/23 11:38 IMPRESSION: Nodular density at the right base measuring 0.[address] chest to better characterize. Chest CT 07/10/23 14:32 IMPRESSION: Diffuse bronchiolitis mid-lower lung zones with localized area of subsegmental atelectasis posteriorly at the right lung base. Laboratory Results WBC 13.0 10^3/uL (4.0-10.0) H 07/10/23 11:44 RBC 4.83 10^6/uL (4.1-5.3) 07/10/23 11:44 Hgb 14.9 g/dL (11.5-15.3) 07/10/23 11:44 Hct 45.2 % (37.0-47.0) 07/10/23 11:44 MCV 93.6 fl (81-99) 07/10/23 11:44 MCH 30.8 pg (28.0-34.0) 07/10/23 11:44 MCHC 33.0 g/dL (30.0-36.0) 07/10/23 11:44 RDW 13.0 % (12.1-15.1) 07/10/23 11:44 Plt Count 314 10^3/cmm (130-400) 07/10/23 11:44 MPV 9.3 fL (7.4-10.4) 07/10/23 11:44 Neut % (Auto) 71.6 % 07/10/23 11:44 Lymph % (Auto) 20.0 % 07/10/23 11:44 [place] % (Auto) 6.2 % 07/10/23 11:44 Eos % (Auto) 1.2 % 07/10/23 11:44 Baso % (Auto) 0.4 % 07/10/23 11:44 Neut # (Auto) 9.29 10^3/uL (1.8-7.7) H 07/10/23 11:44 Lymph # (Auto) 2.6 10^3/uL (0.8-4.8) 07/10/23 11:44 [place] # (Auto) 0.8 10^3/uL (0.2-0.9) 07/10/23 11:44 Eos # (Auto) 0.2 10^3/uL (0.0-0.8) 07/10/23 11:44 Baso # (Auto) 0.1 10^3/uL (0.0-0.1) 07/10/23 11:44 Nucleated RBC % (auto) 0 % 07/10/23 11:44 Nucleated RBCs # 0.0 /100WBC 07/10/23 11:44 D-Dimer <= 0.27 ug/mIFEU (0-0.59) 07/10/23 11:44 Specimen Type Arterial 07/10/23 12:20 Sample Site Radial, right 07/10/23 12:20 ABG pH 7.41 (7.35-7.45) 07/10/23 12:20 ABG pCO2 45.4 mmHg (35-45) H 07/10/23 12:20 ABG pO2 75.8 mmHg (80.0-100.0) L 07/10/23 12:20 ABG HCO3 28.8 mmol/L (22-26) H 07/10/23 12:20 ABG Base Excess 3.4 mmol/L (-2.0-2.0) H 07/10/23 12:20 Geovani Test Pos 07/10/23 12:20 Hematocrit 45.7 % (37-47) 07/10/23 12:20 Hgb O2 Saturation 94.0 % (95-100) L 07/10/23 12:20 Carboxyhemoglobin 1.9 %THgb (0.4-20.1) 07/10/23 12:20 Methemoglobin 0.4 % (0.4-1.5) 07/10/23 12:20 Total Hemoglobin 14.9 g/dL (12-16) 07/10/23 12:20 O2 Delivery Device Nc 07/10/23 12:20 O2 Liters/Min 3.5 % 07/10/23 12:20 Flat Knitter Helper ID Gd 07/10/23 12:20 Sodium 135 mmol/L (136-145) L 07/10/23 11:44 Potassium 3.4 mmol/L (3.5-5.1) L 07/10/23 11:44 Chloride 89 mmol/L (98-107) L 07/10/23 11:44 Carbon Dioxide 29 mmol/L (22-29) 07/10/23 11:44 Anion Gap 20.4 (5-19) H 07/10/23 11:44 BUN 9 mg/dL (6-20) 07/10/23 11:44 Creatinine 0.9 mg/dL (0.5-0.9) 07/10/23 11:44 GFR Calculation 65.5 mL/min (90-130) L 07/10/23 11:44 Glucose 149 mg/dL (65-115) H 07/10/23 11:44 Calculated Osmolality 281 mOsm/kg (285-295) L 07/10/23 11:44 Calcium 9.7 mg/dL (8.5-10.5) 07/10/23 11:44 Total Bilirubin 0.3 mg/dL (0.15-1.2) 07/10/23 11:44 AST 10 U/L (0-32) 07/10/23 11:44 ALT < 5 U/L (0-33) 07/10/23 11:44 Alkaline Phosphatase 133 U/L (35-105) H 07/10/23 11:44 Troponin T Gen 5 ng/L 6 ng/L (0-10) 07/10/23 11:44 NT-Pro-B Natriuret Pep 59 pg/mL (0-125) 07/10/23 11:44 Total Protein 8.3 g/dL (6.6-8.7) 07/10/23 11:44 Albumin 4.2 g/dL (3.5-5.2) 07/10/23 11:44 Globulin 4.1 g/dL (1.3-4.6) 07/10/23 11:44 SARS-CoV-2 Ag (Rapid) negative (Negative) 07/10/23 12:42 Discharge Plan Discharge Patient Disposition: Admitted As Inpatient Admit Provider: Jens Cronin Clinical Impression: Acute exacerbation of chronic obstructive pulmonary disease Condition: Stable Coding Level of Care Code ED [employer] Manager for Vane Lynch
[2023-07-10 12:19] LABS: Troponin T (5th) Once 6 ng/L (0-10)
[2023-07-10] MEDS: ipratropium-albuterol 3 mL Neb INHALATION ×4 (12:23→19:37)
[2023-07-10 12:30] LABS: Alanine Aminotransferase < 5 U/L (0-33); Albumin Level 4.2 g/dL (3.5-5.2); Alkaline Phosphatase 133 U/L (35-105); Anion Gap 20.4 (5-19); Aspartate Amino Transferase 10 U/L (0-32); Blood Urea Nitrogen 9 mg/dL (6-20); Calcium 9.7 mg/dL (8.5-10.5); Carbon Dioxide 29 mmol/L (22-29); Chloride 89 mmol/L (98-107); Globulin 4.1 g/dL (1.3-4.6); Glomerular Filtration Rate 65.5 mL/min (90-130); Glucose 149 mg/dL (65-115); NT Pro B Type Natriuretic Pept 59 pg/mL (0-125); Osmolality Calculated 281 mOsm/kg (285-295); Potassium 3.4 mmol/L (3.5-5.1); Sodium 135 mmol/L (136-145); Total Bilirubin 0.3 mg/dL (0.15-1.2); Total Protein 8.3 g/dL (6.6-8.7)
[2023-07-10 12:35] LABS: ABG PCO2 45.4 mmHg (35-45); ABG PH Result 7.41 (7.35-7.45); Arterial Blood Gas Hematocrit 45.7 % (37-47); Base Excess ABG 3.4 mmol/L (-2.0-2.0); Blood Gas Allen Test Pos; Blood Gas Sample Type Arterial; Carboxyhemoglobin 1.9 %THgb (0.4-20.1); HCO3 ABG 28.8 mmol/L (22-26); Methemoglobin 0.4 % (0.4-1.5); PO2 ABG 75.8 mmHg (80.0-100.0); Total Hemoglobin 14.9 g/dL (12-16)
[2023-07-10 12:36] LABS: Blood Gas LPM 3.5 %; Blood Gas Operator Identificat GD; Blood Gas Sample Site Radial, right; Oxygen Device NC
[2023-07-10 13:07] LABS: SARS Covid-2 Antigen negative (Negative)
[2023-07-10] MEDS: water for injection-sterile SDV 10 mL IVP (14:14)
[2023-07-10] MEDS: methylPREDNISolone sod succ 125 mg SDV IV (14:14)
--- NOTE | 2023-07-10 14:32 | CTR_ITS ---
PROCEDURE INFORMATION: Exam: CT Chest Without Contrast; Diagnostic Exam date and time: 07/10/2023 2:59 PM Age: 52 years old Clinical indication: Other: Nodule TECHNIQUE: Imaging protocol: Diagnostic computed tomography of the chest without contrast. Radiation optimization: All CT scans at this facility use at least one of these dose optimization techniques: automated exposure control; mA and/or kV adjustment per patient size (includes targeted exams where dose is matched to clinical indication); or iterative reconstruction. REPORTING DATA: Count of CT and Cardiac NM exams in prior 12 months: This patient has received 0 known CTs and 0 known cardiac nuclear medicine studies in the 12 months prior to the current study. COMPARISON: CR (CHEST, ) 07/10/2023 12:53 PM RADIATION DOSE METRICS: Total DLP (mGy-cm): 446.16 FINDINGS: Lungs: There are diffuse peribronchiolar centrilobular opacities within the mid to lower lung zones more pronounced on the right consistent with diffuse bronchiolitis that may be infectious in nature with other considerations to include respiratory and follicular bronchiolitis. There is a small irregular shaped consolidative density posteriorly at the right lung base the likely secondary to subsegmental atelectasis. Pleural spaces: Unremarkable. No pneumothorax. No pleural effusion. Heart: Heart is not enlarged. No significant coronary artery calcifications or pericardial effusion. Lymph nodes: Unremarkable. No enlarged lymph nodes. Vasculature: Unremarkable. No aortic aneurysm. Bones/joints: Unremarkable. No acute fracture. Soft tissues: Unremarkable. CT/CT chest wo con [id number] IMPRESSION: Diffuse bronchiolitis mid-lower lung zones with localized area of subsegmental atelectasis posteriorly at the right lung base.
--- NOTE | 2023-07-10 17:09 | PM.HP ---
Providers/Chief Complaint Primary Care Provider: Meli Goldman DO Chief Complaint: SOB, headache History of Present Illness Lauren Bae is a 52 year old female with a medical history of bipolar disorder, urinary incontinence, history of COPD, recently quit smoking back in March, who presents to [facility] due to a 3-week history of shortness of breath, cough, wheezing. Patient tells me for the last 3 weeks she has had shortness of breath, wheezing, productive cough, yellow-green sputum, subjective fevers, chills, no nausea, no vomiting, no chest pain, no recent surgeries, no calf pain, no calf swelling, no hemoptysis, she does not use oxygen at home no history of sleep apnea, she quit smoking back in March her symptoms have worsened over the last week or so, she is constantly wheezing she tells me in the emergency room she was found to have a new oxygen requirements of 6 L and 6 L currently with full sentences, her O2 sats dropped into the high 80s, no chest pain, no palpitations, normotensive, she is short of breath at the end of a sentence, Review of Systems Const: Reports: fever(s), chills, fatigue and malaise Eyes: Denies: change in vision ENMT: Denies: throat pain Card: Reports: dyspnea on exertion; Denies: chest pain, palpitations or syncope Resp: Reports: dyspnea and productive cough GI: Denies: abdominal pain, nausea or vomiting : Denies: flank pain or difficulty voiding Musc: Denies: neck pain or back pain Skin/Breast: Denies: rash Neuro: Denies: headache(s), numbness in extremities or weakness in extremities Psych: Denies: anxiety Medications/Allergies Home Medications Medication Instructions Recorded Confirmed Last Taken Type buspirone 15 mg tablet 15 mg PO QID #120 tabs 04/04/23 07/10/23 07/09/23 Rx paliperidone 6 mg tablet,extended 6 mg PO QAM #14 tabs 04/04/23 07/10/23 Unknown Rx release 24 hr (Invega) paliperidone palmitate 234 mg/1.5 234 mg (1.5 mL) IM Q30D #1.5 mL 04/04/23 07/10/23 06/09/23 Rx mL intramuscular syringe (Invega Sustenna) sertraline 100 mg tablet (Zoloft) 100 mg PO BID #60 tabs 04/04/23 07/10/23 07/09/23 Rx meloxicam 15 mg tablet 15 mg PO DAILY 07/10/23 07/10/23 07/09/23 History oxybutynin chloride 10 mg 10 mg PO DAILY 07/10/23 07/10/23 07/09/23 History tablet,extended release 24 hr trazodone 100 mg tablet 100 mg PO BEDTIME 07/10/23 07/10/23 07/09/23 History Allergies Allergy/AdvReac Type Severity Reaction Status Date / Time No Known Allergies Allergy Verified 07/10/23 11:38 PFSH Acute PFSH: Medical History Borderline personality disorder Cannabis dependence, uncomplicated Major depressive disorder, recurrent, moderate Migraine headache Mixed incontinence Nicotine dependence, cigarettes, uncomplicated Post-traumatic stress disorder, chronic Psychiatric care Surgical History H/O tubal ligation H/O: hysterectomy (~2003) LAVH/BSO Performed due to bleeding. Status post colonoscopy (05/27/20) polyps Family History Mother Thyroid disease Grandfather Diabetes Maternal Hypertension Maternal Denies family history of Colon cancer Ovarian cancer Heart disease Hyperlipidemia Breast cancer Bleeding disorder Uterine cancer Stroke Social History (Updated 07/10/23 @ 17:12 by Jens Cronin MD) Smoking and tobacco status: former smoker Quit status (tobacco): has tried quititng Number of times tried to quit tobacco: 4 Second hand smoke exposure: No Smoking risk assessment/counseling performed?: No Alcohol intake: former Year of sobriety/quit date alcohol: 2013 Desire information about alcohol rehabilitation?: No Counseling given: No Substance/Drug Use: former Date of last use: 2013 Desire information about substance/drug rehabilitation?: No Counseling given: No Adopted: No Caregiver/support person: No Lives independently: Yes Household members: children Housing: Apartment Marital status: Marital status details: well over 10 years ago Number of children: 4 Number of grandchildren: 5 Highest education level completed: 10th Grade service: No Current occupational status: disabled Pets and animals: Yes Pets & animals: dog(s) Leisure activites: art, music, reading and other Leisure activities details: research, nature Sexually active: No Do you think of yourself as: Straight/Heterosexual Current gender identity: Female Katie/Catholic: Zoroastrianism Special katie needs: No Agree to transfusion: Yes Financial difficulty paying for basics: Not Very Hard Female Reproductive History: Para: 4 Spontaneous abortions: Yes (1 spontaneous abortions) Vitals/I&O/Wt Last Vital Signs Temp 98.4 F 07/10/23 11:34 Pulse 95 07/10/23 15:32 Resp 18 07/10/23 15:09 BP 116/74 07/10/23 15:32 Pulse Ox 86 L 07/10/23 16:13 O2 Del Method Nasal Cannula 07/10/23 15:32 O2 Flow Rate 6 07/10/23 16:13 Weight last 48 hrs Weight 90.265 kg Physical Exam Const: COMMON NORMALS: no acute distress and patient oriented x3 GENERAL APPEARANCE: cooperative, well kempt and well developed HENMT: COMMON NORMALS: normocephalic and Normal external nose present HEAD & SCALP: normocephalic FACE & SINUS: normal facial exam NOSE: Normal external nose present Eye: COMMON NORMALS: Equal, round and reactive pupils present, EOMs intact bilaterally, conjunctivae normal and no scleral icterus CONJUNCTIVA: Yes conjunctivae normal PUPIL: Yes Equal, round and reactive pupils present Neck/C-Spine: COMMON NORMALS: full ROM, no lymphadenopathy, no JVD, Thyroid normal and No carotid bruits THYROID: Thyroid normal Lymph: LYMPHATIC: no lymphadenopathy noted Chest: COMMONS NORMALS: normal inspection of the chest Resp: COMMON NORMALS: normal respiratory effort, No retractions and No use of accessory muscles OTHER: Diffuse wheezing in all lung price Cardio: COMMON NORMALS: regular rate, regular rhythm, S1 normal heart sound present, S2 normal heart sound present, No murmurs present (Cardio) and Peripheral pulses 2+ throughout RATE: regular rate RHYTHM: regular rhythm HEART SOUNDS: S1 normal heart sound present and S2 normal heart sound present PERIPHERAL PULSES: Peripheral pulses 2+ throughout GI: COMMON NORMALS: Normal to inspection, nondistended, normoactive bowel sounds present, Soft to palpation and non-tender PALPATION: Yes Soft to palpation : BLADDER/KIDNEY EXAM: Yes no CVA tenderness Back/Pelvis: COMMON NORMALS: no CVA tenderness Extremity: COMMON NORMALS: normal to inspection, full ROM, capillary refill normal, no calf tenderness and no pedal edema Neuro: COMMON NORMALS: patient oriented x3, CN's II-XII intact bilaterally, moves all extremities, no focal motor deficits and no sensory deficits noted MENINGEAL SIGNS: Yes no meningeal signs Psych: COMMON NORMALS: mental status grossly normal, Normal thought process present, cooperative and speech normal APPEARANCE: Yes well kempt SPEECH: Yes normal speech THOUGHT PROCESS: Normal thought process present Skin: COMMON NORMALS: turgor normal and no jaundice GENERAL SKIN EXAM: turgor normal Data 07/10/23 11:44 07/10/23 11:44 Micro: Microbiology 07/10/23 12:30 Blood Culture - Preliminary Blood SPECIMEN COLLECTED 07/10/23 11:58 Blood Culture - Preliminary Blood SPECIMEN COLLECTED A&P Assessment and plan (1) Acute exacerbation of chronic obstructive pulmonary disease: (2) Pneumonia: (3) Bronchiolitis: (4) Acute respiratory failure with hypoxia: Plan Acute hypoxic respiratory failure -Secondary to COPD exacerbation -Secondary to pneumonia -With evidence of bronchiolitis radiographically Plan -Respiratory viral panel -Solu-Medrol 40 mg IV push every 8 hours -Rocephin, azithromycin -Respiratory viral panel -Sputum culture, blood cultures -Oxygen therapy -DuoNeb -Budesonide -Monitor respiratory status closely -Full code -Lovenox for DVT prophylaxis Attestations Medical Necessity Statement*: Patient requires hospitalization inpatient, greater than 2 midnights, for acute hypoxic aspiratory failure secondary to COPD, pneumonia, bronchiolitis Diagnoses Acute exacerbation of chronic obstructive pulmonary disease J44.1 Pneumonia J18.9 Bronchiolitis J21.9 Acute respiratory failure with hypoxia J96.01
[2023-07-10] MEDS: cefTRIAXone 1,000 MG in sodium chloride 0.9% (plus) 50 ML 100 MG IV (17:32)
[2023-07-10 17:41] LABS: C Reactive Protein 155.8 mg/L (0.0-4.9)
[2023-07-10 17:48] LABS: Procalcitonin 0.15 ng/mL (0-0.5)
[2023-07-10] MEDS: pantoprazole 40 mg SDV IVP (18:39)
[2023-07-10] MEDS: enoxaparin 40 mg/0.4 mL Syringe SUBCUT (18:48)
[2023-07-10] MEDS: sertraline 100 mg Tablet PO (18:48)
[2023-07-10] MEDS: azithromycin 500 MG in sodium chloride 0.9% 250 ML 250 MG IV (18:49)
[2023-07-10] MEDS: budesonide 0.5 mg/2 mL Neb INHALATION (19:37)
[2023-07-10] MEDS: BuSPIRONE 10 mg Tablet 15 MG PO (19:49)
[2023-07-10 19:56] LABS: Adenovirus Not Detected (NOT DETECT); Chlamydia Pneumoniae Not Detected (NOT DETECT); Coronavirus 229E,HKU1,NL63,OC4 Not Detected (NOT DETECT); Human Metapneumovirus Not Detected (NOT DETECT); Human Rhinovirus/Enterovirus Not Detected (NOT DETECT); Influenza A Not Detected (NOT DETECT); Influenza A H1 Not Detected (NOT DETECT); Influenza A H1-2009 Not Detected (NOT DETECT); Influenza A H3 Not Detected (NOT DETECT); Influenza B Not Detected (NOT DETECT); Mycoplasma Pneumoniae Not Detected (NOT DETECT); Parainfluenza Virus Type 1 Not Detected (NOT DETECT); Parainfluenza Virus Type 2 Not Detected (NOT DETECT); Parainfluenza Virus Type 3 Not Detected (NOT DETECT); Parainfluenza Virus Type 4 Not Detected (NOT DETECT); Respiratory Syncytial Virus A Not Detected (NOT DETECT); Respiratory Syncytial Virus B Not Detected (NOT DETECT); SARS-COV-2 Not Detected (NOT DETECT)
[2023-07-10] MEDS: trazodone 100 mg Tablet PO (21:01)
[2023-07-10 21:10] LABS: Estmated Average Glucose 111; Hemoglobin A1C 5.5 % (4.0-6.0)
[2023-07-11] VITALS (13 sets, daily range): BP systolic 110–135; BP diastolic 72–91; PULSE 64–83; RESP 16–18; TEMP 36.6–36.8; O2SAT 86–97
[2023-07-11 04:52] LABS: Basophils % 0.3 %; Hematocrit 40.1 % (37.0-47.0); Hemoglobin 13.4 g/dL (11.5-15.3); Lymphocytes # 1.8 10^3/uL (0.8-4.8); Lymphocytes % 12.9 %; Mean Corpuscular HGB Conc 33.4 g/dL (30.0-36.0); Mean Corpuscular Volume 92.8 fl (81-99); Mean Platelet Volume 9.4 fL (7.4-10.4); Monocytes # 0.7 10^3/uL (0.2-0.9); Monocytes % 4.9 %; Neutrophils # 11.09 10^3/uL (1.8-7.7); Neutrophils % 80.2 %; Nucleated Red Blood Cells % 0 %; Platelet Count 311 10^3/cmm (130-400); Red Blood Count 4.32 10^6/uL (4.1-5.3); Red Cell Distribution Width 12.9 % (12.1-15.1); White Blood Count 13.8 10^3/uL (4.0-10.0)
[2023-07-11] MEDS: methylPREDNISolone sod succ 40 MG in water for injection-sterile 1 ML 12 MG IVP ×2 (05:04→21:15)
--- NOTE | 2023-07-11 05:07 | PC.NURSE ---
Patient refusing PO Invega. Patient states I'm supposed to have my Invega shot today.
[2023-07-11 05:20] LABS: Chol HDL Ratio 5.07 mg/dL (0.0-4.40); Cholesterol 228 mg/dL (0-200); HDL Cholesterol 45 mg/dL (60-100); LDL Cholesterol Calculated 157 mg/dL (50-129); LDL HDL Ratio 3.49 RATIO (0.00-3.22); Triglycerides 128 mg/dL (0-150)
[2023-07-11 05:27] LABS: Anion Gap 15.2 (5-19); Blood Urea Nitrogen 11 mg/dL (6-20); Calcium 9.5 mg/dL (8.5-10.5); Carbon Dioxide 30 mmol/L (22-29); Chloride 95 mmol/L (98-107); Glomerular Filtration Rate 104.6 mL/min (90-130); Glucose 135 mg/dL (65-115); Magnesium 2.4 mg/dL (1.7-2.3); Osmolality Calculated 283 mOsm/kg (285-295); Phosphorus 2.8 mg/dL (2.5-4.5); Potassium 4.2 mmol/L (3.5-5.1); Sodium 136 mmol/L (136-145); Thyroid Stimulating Hormone 0.56 uIU/mL (0.27-4.20)
[2023-07-11] MEDS: budesonide 0.5 mg/2 mL Neb INHALATION ×2 (07:42→19:36)
[2023-07-11] MEDS: ipratropium-albuterol 3 mL Neb INHALATION ×4 (07:42→19:36)
[2023-07-11] MEDS: oxybutynin chloride XL 5 MG TABLET 10 MG PO (07:53)
[2023-07-11] MEDS: BuSPIRONE 10 mg Tablet 15 MG PO ×4 (07:53→21:14)
[2023-07-11] MEDS: sertraline 100 mg Tablet PO ×2 (07:55→16:42)
--- NOTE | 2023-07-11 13:49 | P.PN_ITS ---
Subjective Subjective: Patient was seen this morning, she continues to wheeze, but overall her clinical condition has improved, no fevers, no chills Vitals/I&O/Wt Last Vital Signs Temp 98 F 07/11/23 11:22 Pulse 83 07/11/23 11:51 Resp 16 07/11/23 11:51 BP 123/83 07/11/23 11:22 Pulse Ox 92 07/11/23 11:51 O2 Del Method Nasal Cannula 07/11/23 11:51 O2 Flow Rate 2 07/11/23 11:51 07/10/23 07/11/23 07/11/23 22:59 06:59 14:59 Intake Total 300 / 300 1 / 301 480 / 480 Output Total 400 / 400 Balance 300 / 300 -399 / -99 480 / 480 Weight last 48 hrs Weight 90.265 kg Physical Exam Const: COMMON NORMALS: no acute distress and patient oriented x3 Resp: AUSCULTATION: wheezes Cardio: COMMON NORMALS: regular rate, regular rhythm, S1 normal heart sound present and S2 normal heart sound present RATE: regular rate RHYTHM: r egular rhythm HEART SOUNDS: S1 normal heart sound present and S2 normal heart sound present GI: COMMON NORMALS: Normal to inspection, nondistended, normoactive bowel sounds present and non-tender Extremity: COMMON NORMALS: no pedal edema Neuro: COMMON NORMALS: patient oriented x3 Psych: COMMON NORMALS: mental status grossly normal Data 07/11/23 04:32 07/11/23 04:32 Micro: Microbiology 07/10/23 12:30 Blood Culture - Preliminary Blood NEGATIVE TO DATE 07/10/23 11:46 Sputum Culture - Preliminary Sputum - Expectorated Sputum 07/10/23 11:58 Blood Culture - Preliminary Blood NEGATIVE TO DATE 07/10/23 22:22 Bacterial Antigens - Final Urine,Clean Catch A&P Assessment and plan (1) Acute exacerbation of chronic obstructive pulmonary disease: (2) Pneumonia: (3) Bronchiolitis: (4) Acute respiratory failure with hypoxia: Plan Acute hypoxic respiratory failure -Secondary to COPD exacerbation -Secondary to pneumonia -With evidence of bronchiolitis radiographically Plan -Respiratory viral panel negative -Solu-Medrol 40 mg IV push every 8 hours -Rocephin, azithromycin -follow Sputum culture, blood cultures -Oxygen therapy -DuoNeb -Budesonide -Monitor respiratory status closely -Full code -Lovenox for DVT prophylaxis Plan for today, continue steroids, continue antibiotics, up out of bed, monitor sputum cultures, blood cultures, treat wheezing Attestations Medical Necessity Statement*: Patient requires hospitalization for COPD exacerbation Diagnoses Acute exacerbation of chronic obstructive pulmonary disease J44.1 Pneumonia J18.9 Bronchiolitis J21.9 Acute respiratory failure with hypoxia J96.01
[2023-07-11] MEDS: acetaminophen 325 mg Tablet 650 MG PO (16:37)
[2023-07-11] MEDS: cefTRIAXone 1,000 MG in sodium chloride 0.9% (plus) 50 ML 100 MG IV (16:38)
[2023-07-11] MEDS: methylPREDNISolone sod succ 40 MG in water for injection-sterile 1 ML IVP (16:38)
[2023-07-11] MEDS: pantoprazole 40 mg SDV IVP (16:42)
[2023-07-11] MEDS: enoxaparin 40 mg/0.4 mL Syringe SUBCUT (16:43)
[2023-07-11] MEDS: azithromycin 500 MG in sodium chloride 0.9% 250 ML 250 MG IV (19:46)
[2023-07-11] MEDS: trazodone 100 mg Tablet PO (22:06)
[2023-07-12] VITALS (16 sets, daily range): BP systolic 109–140; BP diastolic 71–84; PULSE 63–81; RESP 16–19; TEMP 35.9–36.8; O2SAT 92–96
[2023-07-12 05:16] LABS: Basophils % 0.1 %; Hematocrit 40.1 % (37.0-47.0); Hemoglobin 12.8 g/dL (11.5-15.3); Lymphocytes # 1.6 10^3/uL (0.8-4.8); Lymphocytes % 11.6 %; Mean Corpuscular HGB Conc 31.9 g/dL (30.0-36.0); Mean Corpuscular Hemoglobin 30.8 pg (28.0-34.0); Mean Corpuscular Volume 96.6 fl (81-99); Mean Platelet Volume 9.7 fL (7.4-10.4); Monocytes # 0.6 10^3/uL (0.2-0.9); Monocytes % 4.4 %; Neutrophils # 11.54 10^3/uL (1.8-7.7); Neutrophils % 82.4 %; Nucleated Red Blood Cells % 0 %; Platelet Count 289 10^3/cmm (130-400); Red Blood Count 4.15 10^6/uL (4.1-5.3); Red Cell Distribution Width 13.1 % (12.1-15.1)
[2023-07-12] MEDS: paliperidone ER 6 mg Tablet PO (05:43)
[2023-07-12] MEDS: methylPREDNISolone sod succ 40 MG in water for injection-sterile 1 ML 12 MG IVP ×2 (05:43→15:07)
[2023-07-12 05:47] LABS: Blood Urea Nitrogen 14 mg/dL (6-20); Carbon Dioxide 28 mmol/L (22-29); Chloride 94 mmol/L (98-107); Glomerular Filtration Rate 87.5 mL/min (90-130); Glucose 109 mg/dL (65-115); Magnesium 2.2 mg/dL (1.7-2.3); Osmolality Calculated 279 mOsm/kg (285-295); Phosphorus 3.6 mg/dL (2.5-4.5); Sodium 134 mmol/L (136-145)
[2023-07-12 05:48] LABS: Anion Gap 16.2 (5-19); Potassium 4.2 mmol/L (3.5-5.1)
[2023-07-12] MEDS: budesonide 0.5 mg/2 mL Neb INHALATION ×2 (09:05→20:05)
[2023-07-12] MEDS: ipratropium-albuterol 3 mL Neb INHALATION ×4 (09:06→20:05)
[2023-07-12] MEDS: BuSPIRONE 10 mg Tablet 15 MG PO ×4 (09:55→20:46)
[2023-07-12] MEDS: sertraline 100 mg Tablet PO ×2 (09:56→17:21)
[2023-07-12] MEDS: oxybutynin chloride XL 5 MG TABLET 10 MG PO (09:56)
[2023-07-12] MEDS: cefTRIAXone 1,000 MG in sodium chloride 0.9% (plus) 50 ML 100 MG IV (17:20)
[2023-07-12] MEDS: pantoprazole 40 mg SDV IVP (17:20)
[2023-07-12] MEDS: enoxaparin 40 mg/0.4 mL Syringe SUBCUT (17:22)
--- NOTE | 2023-07-12 17:30 | PM.PN ---
Subjective Subjective: Patient was seen this morning, she continues to complain of wheezing and shortness of breath, no fevers, no chills Vitals/I&O/Wt Last Vital Signs Temp 96.9 F L 07/12/23 16:00 Pulse 71 07/12/23 16:00 Resp 18 07/12/23 16:00 BP 127/82 07/12/23 16:00 Pulse Ox 95 07/12/23 16:00 O2 Del Method Nasal Cannula 07/12/23 16:00 O2 Flow Rate 2 07/12/23 15:44 07/12/23 07/12/23 07/12/23 06:59 14:59 22:59 Intake Total 240.6 / 1382.6 480 / 480 480 / 960 Balance 240.6 / 1382.6 480 / 480 480 / 960 Physical Exam Const: COMMON NORMALS: no acute distress and patient oriented x3 Resp: COMMON NORMALS: normal respiratory effort, No retractions and No use of accessory muscles OTHER: Expiratory wheezing Cardio: COMMON NORMALS: regular rate, regular rhythm, S1 normal heart sound present and S2 normal heart sound present RATE: regular rate RHYTHM: regular rhythm HEART SOUNDS: S1 normal heart sound present and S2 normal heart sound present GI: COMMON NORMALS: Normal to inspection, nondistended, normoactive bowel sounds present and non-tender Extremity: COMMON NORMALS: no pedal edema Neuro: COMMON NORMALS: patient oriented x3 Psych: COMMON NORMALS: mental status grossly normal Data 07/12/23 04:43 07/12/23 04:43 Micro: Microbiology 07/10/23 11:46 Sputum Culture - Final Sputum - Expectorated Sputum Haemophilus Influenzae 07/10/23 12:30 Blood Culture - Preliminary Blood NEGATIVE TO DATE A&P Assessment and plan (1) Acute exacerbation of chronic obstructive pulmonary disease: (2) Pneumonia: (3) Bronchiolitis: (4) Acute respiratory failure with hypoxia: Plan Acute hypoxic respiratory failure -Secondary to COPD exacerbation -Secondary to pneumonia -With evidence of bronchiolitis radiographically Plan -Respiratory viral panel negative -De-escalate Solu-Medrol to prednisone 40 mg p.o. every 24 hours tomorrow -Rocephin, azithromycin, de-escalate tomorrow to doxycycline -follow Sputum culture, blood cultures -Oxygen therapy -DuoNeb -Budesonide -Monitor respiratory status closely -Full code -Lovenox for DVT prophylaxis Plan for today, continue steroids, continue antibiotics, up out of bed, monitor sputum cultures, blood cultures, treat wheezing, plan on discharging tomorrow Attestations Medical Necessity Statement*: Patient requires hospitalization for COPD exacerbation Diagnoses Acute exacerbation of chronic obstructive pulmonary disease J44.1 Pneumonia J18.9 Bronchiolitis J21.9 Acute respiratory failure with hypoxia J96.01
[2023-07-12] MEDS: trazodone 100 mg Tablet PO (21:36)
[2023-07-13] VITALS (10 sets, daily range): BP systolic 110–128; BP diastolic 72–83; PULSE 64–88; RESP 16–18; TEMP 36.6–36.8; O2SAT 85–96
[2023-07-13 05:00] LABS: Basophils % 0.2 %; Hematocrit 37.8 % (37.0-47.0); Lymphocytes # 3.2 10^3/uL (0.8-4.8); Lymphocytes % 24.6 %; Mean Corpuscular HGB Conc 31.7 g/dL (30.0-36.0); Mean Corpuscular Hemoglobin 30.6 pg (28.0-34.0); Mean Corpuscular Volume 96.4 fl (81-99); Mean Platelet Volume 9.6 fL (7.4-10.4); Monocytes # 0.6 10^3/uL (0.2-0.9); Monocytes % 4.9 %; Neutrophils # 8.96 10^3/uL (1.8-7.7); Neutrophils % 69.1 %; Nucleated Red Blood Cells % 0 %; Platelet Count 291 10^3/cmm (130-400); Red Blood Count 3.92 10^6/uL (4.1-5.3); Red Cell Distribution Width 13.1 % (12.1-15.1)
[2023-07-13 05:22] LABS: Anion Gap 12.6 (5-19); Blood Urea Nitrogen 12 mg/dL (6-20); Calcium 8.5 mg/dL (8.5-10.5); Carbon Dioxide 32 mmol/L (22-29); Chloride 99 mmol/L (98-107); Glomerular Filtration Rate 87.5 mL/min (90-130); Glucose 124 mg/dL (65-115); Magnesium 2.4 mg/dL (1.7-2.3); Osmolality Calculated 291 mOsm/kg (285-295); Potassium 3.6 mmol/L (3.5-5.1); Sodium 140 mmol/L (136-145)
[2023-07-13] MEDS: paliperidone ER 6 mg Tablet PO (05:46)
[2023-07-13] MEDS: ipratropium-albuterol 3 mL Neb INHALATION ×2 (07:29→11:06)
[2023-07-13] MEDS: budesonide 0.5 mg/2 mL Neb INHALATION (07:29)
[2023-07-13] MEDS: BuSPIRONE 10 mg Tablet 15 MG PO (08:22)
[2023-07-13] MEDS: sertraline 100 mg Tablet PO (08:22)
[2023-07-13] MEDS: amoxicillin-clav 875-125 mg Tablet 1 TAB PO (08:22)
[2023-07-13] MEDS: predniSONE 20 mg Tablet 40 MG PO (08:22)
[2023-07-13] MEDS: oxybutynin chloride XL 5 MG TABLET 10 MG PO (08:23)
--- NOTE | 2023-07-13 10:40 | P.DS_ITS ---
Discharge Providers Date of Admission: 07/10/23 17:04 Date of Discharge: July 13, 2023 Attending Provider at Admission: Jens Cronin MD Attending Provider at Discharge: Jens Cronin MD Primary Care Provider: Meli Goldman DO Diagnoses at Discharge Discharge Diagnosis (1) Acute exacerbation of chronic obstructive pulmonary disease: Status: Acute (2) Pneumonia: Status: Acute (3) Bronchiolitis: Status: Acute (4) Acute respiratory failure with hypoxia: Status: Acute Reason for Visit Reason for Visit: SOB, headache Hospital Course Hospital Course Lauren Bae is a 52 year old female with a medical history of bipolar disorder, urinary incontinence, history of COPD, recently quit smoking back in March, who presents to [facility] due to a 3-week history of shortness of breath, cough, wheezing.? Patient tells me for the last 3 weeks she has had shortness of breath, wheezing, productive cough, yellow-green sputum, subjective fevers, chills, no nausea, no vomiting, no chest pain, no recent surgeries, no calf pain, no calf swelling, no hemoptysis, she does not use oxygen at home no history of sleep apnea, she quit smoking back in March her symptoms have worsened over the last week or so, she is constantly wheezing she tells me in the emergency room she was found to have a new oxygen requirements of 6 L and 6 L currently with full sentences, her O2 sats dropped into the high 80s, no chest pain, no palpitations, normotensive, she is short of breath at the end of a sentence, Patient was admitted to [facility] for shortness of breath secondary to COPD exacerbation and haemophilus influenza pneumonia, required oxygen therapy, steroid therapy, IV antibitics and clinically monitored, atient overall clinically improved, discharged on steroid taper, po antibiotics, inhaler therapy, oxygen 2L, follow up with Dr. Sanchez on discharge Physical Exam Const: COMMON NORMALS: no acute distress and patient oriented x3 Resp: COMMON NORMALS: normal respiratory effort, No retractions, No use of accessory muscles and clear to auscultation bilaterally AUSCULTATION: clear to auscultation bilaterally Cardio: COMMON NORMALS: regular rate, regular rhythm, S1 normal heart sound present and S2 normal heart sound present RATE: regular rate RHYTHM: regular rhythm HEART SOUNDS: S1 normal heart sound present and S2 normal heart sound present GI: COMMON NORMALS: Normal to inspection, nondistended, normoactive bowel sounds present and non-tender Extremity: COMMON NORMALS: no pedal edema Neuro: COMMON NORMALS: patient oriented x3 Psych: COMMON NORMALS: mental status grossly normal Discharge Data Studies Completed and Pending Completed Studies During Hospitalization Category Date Time Status CT chest wo con [id number] Stat Cat Scan 07/10/23 14:32 Completed XR chest 1V portable [id number] Stat Exams 07/10/23 11:38 Completed Pending at discharge Category Date Time Status Blood Culture Stat Lab 07/10/23 12:30 Results Radiology Impressions Chest X-Ray 07/10/23 11:38 IMPRESSION: Nodular density at the right base measuring 0.[address] chest to better characterize. Chest CT 07/10/23 14:32 IMPRESSION: Diffuse bronchiolitis mid-lower lung zones with localized area of subsegmental atelectasis posteriorly at the right lung base. Laboratory Results WBC 13.0 10^3/uL (4.0-10.0) H 07/13/23 04:19 RBC 3.92 10^6/uL (4.1-5.3) L 07/13/23 04:19 Hgb 12.0 g/dL (11.5-15.3) 07/13/23 04:19 Hct 37.8 % (37.0-47.0) 07/13/23 04:19 MCV 96.4 fl (81-99) 07/13/23 04:19 MCH 30.6 pg (28.0-34.0) 07/13/23 04:19 MCHC 31.7 g/dL (30.0-36.0) 07/13/23 04:19 RDW 13.1 % (12.1-15.1) 07/13/23 04:19 Plt Count 291 10^3/cmm (130-400) 07/13/23 04:19 MPV 9.6 fL (7.4-10.4) 07/13/23 04:19 Neut % (Auto) 69.1 % 07/13/23 04:19 Lymph % (Auto) 24.6 % 07/13/23 04:19 Brooke % (Auto) 4.9 % 07/13/23 04:19 Eos % (Auto) 0.0 % 07/13/23 04:19 Baso % (Auto) 0.2 % 07/13/23 04:19 Neut # (Auto) 8.96 10^3/uL (1.8-7.7) H 07/13/23 04:19 Lymph # (Auto) 3.2 10^3/uL (0.8-4.8) 07/13/23 04:19 Brooke # (Auto) 0.6 10^3/uL (0.2-0.9) 07/13/23 04:19 Eos # (Auto) 0.0 10^3/uL (0.0-0.8) 07/13/23 04:19 Baso # (Auto) 0.0 10^3/uL (0.0-0.1) 07/13/23 04:19 Nucleated RBC % (auto) 0 % 07/13/23 04:19 Nucleated RBCs # 0.0 /100WBC 07/13/23 04:19 D-Dimer <= 0.27 ug/mIFEU (0-0.59) 07/10/23 11:44 Specimen Type Arterial 07/10/23 12:20 Sample Site Radial, right 07/10/23 12:20 ABG pH 7.41 (7.35-7.45) 07/10/23 12:20 ABG pCO2 45.4 mmHg (35-45) H 07/10/23 12:20 ABG pO2 75.8 mmHg (80.0-100.0) L 07/10/23 12:20 ABG HCO3 28.8 mmol/L (22-26) H 07/10/23 12:20 ABG Base Excess 3.4 mmol/L (-2.0-2.0) H 07/10/23 12:20 Geovani Test Pos 07/10/23 12:20 Hematocrit 45.7 % (37-47) 07/10/23 12:20 Hgb O2 Saturation 94.0 % (95-100) L 07/10/23 12:20 Carboxyhemoglobin 1.9 %THgb (0.4-20.1) 07/10/23 12:20 Methemoglobin 0.4 % (0.4-1.5) 07/10/23 12:20 Total Hemoglobin 14.9 g/dL (12-16) 07/10/23 12:20 O2 Delivery Device Nc 07/10/23 12:20 O2 Liters/Min 3.5 % 07/10/23 12:20 Permastone Applicator ID Gd 07/10/23 12:20 Sodium 140 mmol/L (136-145) 07/13/23 04:19 Potassium 3.6 mmol/L (3.5-5.1) 07/13/23 04:19 Chloride 99 mmol/L (98-107) 07/13/23 04:19 Carbon Dioxide 32 mmol/L (22-29) H 07/13/23 04:19 Anion Gap 12.6 (5-19) 07/13/23 04:19 BUN 12 mg/dL (6-20) 07/13/23 04:19 Creatinine 0.7 mg/dL (0.5-0.9) 07/13/23 04:19 GFR Calculation 87.5 mL/min (90-130) L 07/13/23 04:19 Glucose 124 mg/dL (65-115) H 07/13/23 04:19 Estimat Average Glucose 111 07/10/23 11:44 Hemoglobin A1c 5.5 % (4.0-6.0) 07/10/23 11:44 Calculated Osmolality 291 mOsm/kg (285-295) 07/13/23 04:19 Calcium 8.5 mg/dL (8.5-10.5) 07/13/23 04:19 Phosphorus 4.0 mg/dL (2.5-4.5) 07/13/23 04:19 Magnesium 2.4 mg/dL (1.7-2.3) H 07/13/23 04:19 Total Bilirubin 0.3 mg/dL (0.15-1.2) 07/10/23 11:44 AST 10 U/L (0-32) 07/10/23 11:44 ALT < 5 U/L (0-33) 07/10/23 11:44 Alkaline Phosphatase 133 U/L (35-105) H 07/10/23 11:44 Troponin T Gen 5 ng/L 6 ng/L (0-10) 07/10/23 11:44 C-Reactive Protein 155.8 mg/L (0.0-4.9) H 07/10/23 11:44 NT-Pro-B Natriuret Pep 59 pg/mL (0-125) 07/10/23 11:44 Total Protein 8.3 g/dL (6.6-8.7) 07/10/23 11:44 Albumin 4.2 g/dL (3.5-5.2) 07/10/23 11:44 Globulin 4.1 g/dL (1.3-4.6) 07/10/23 11:44 Triglycerides 128 mg/dL (0-150) 07/11/23 04:32 Cholesterol 228 mg/dL (0-200) H 07/11/23 04:32 LDL Cholesterol, Calc 157 mg/dL (50-129) H 07/11/23 04:32 HDL Cholesterol 45 mg/dL (60-100) L 07/11/23 04:32 LDL/HDL Ratio 3.49 RATIO (0.00-3.22) H 07/11/23 04:32 Cholesterol/HDL Ratio 5.07 mg/dL (0.0-4.40) H 07/11/23 04:32 Procalcitonin 0.15 ng/mL (0-0.5) 07/10/23 11:44 TSH 0.56 uIU/mL (0.27-4.20) 07/11/23 04:32 Nasal Influ A H1 2008 PCR Not detected (NOT DETECT) 07/10/23 17:36 Adenovirus (PCR) Not detected (NOT DETECT) 07/10/23 17:36 C. pneumoniae DNA (PCR) Not detected (NOT DETECT) 07/10/23 17:36 Coronavirus 229E (PCR) Not detected (NOT DETECT) 07/10/23 17:36 Human Metapneumovir PCR Not detected (NOT DETECT) 07/10/23 17:36 Influenza A (H1) PCR Not detected (NOT DETECT) 07/10/23 17:36 Influenza A (H3) PCR Not detected (NOT DETECT) 07/10/23 17:36 Influenza Type A (PCR) Not detected (NOT DETECT) 07/10/23 17:36 Influenza Type B (PCR) Not detected (NOT DETECT) 07/10/23 17:36 M. pneumoniae (PCR) Not detected (NOT DETECT) 07/10/23 17:36 Parainfluenza 1 (PCR) Not detected (NOT DETECT) 07/10/23 17:36 Parainfluenza 2 (PCR) Not detected (NOT DETECT) 07/10/23 17:36 Parainfluenza 3 (PCR) Not detected (NOT DETECT) 07/10/23 17:36 Parainfluenza 4 (PCR) Not detected (NOT DETECT) 07/10/23 17:36 RSV Type A (PCR) Not detected (NOT DETECT) 07/10/23 17:36 RSV Type B (PCR) Not detected (NOT DETECT) 07/10/23 17:36 Entero/Rhino (PCR) Not detected (NOT DETECT) 07/10/23 17:36 SARS-CoV-2 (PCR) Not detected (NOT DETECT) 07/10/23 17:36 SARS-CoV-2 Ag (Rapid) negative (Negative) 07/10/23 12:42 Vitals Last Vital Signs Temp 98.2 F 07/13/23 04:58 Pulse 66 07/13/23 07:36 Resp 16 07/13/23 07:30 BP 128/83 07/13/23 07:09 Pulse Ox 85 L 07/13/23 09:50 O2 Del Method Nasal Cannula 07/13/23 07:30 O2 Flow Rate 6 07/13/23 09:50 Discharge Plan Discharge Patient Disposition: Home Condition: Stable Prescriptions: New acetaminophen 325 mg Tablet 650 mg PO Q6H PRN (Reason: Mild/Mod Pain Or Temp >/= 101) Qty: 30 0RF amoxicillin-pot clavulanate 875-125 mg Tablet 1 tab PO BID 5 Days Qty: 10 0RF albuterol sulfate 90 mcg/actuation HFA aerosol inhaler 1 inh inhalation Q6H PRN (Reason: shortness of breath or wheezing) Qty: 8.5 0RF fluticasone propion-salmeterol [Advair Diskus] 100-50 mcg/dose blister with device 1 inh inhalation BID Qty: 60 0RF prednisone 10 mg tablet 10 mg PO DIRECTED Qty: 53 0RF Rx Instructions: 4 tabs for 5 days, 3 tabs for 5 days, 2 tabs for 5 days, 1 tab for 5 days, 0.5 tabfor 5 days Continued buspirone 15 mg tablet 15 mg PO QID Qty: 120 2RF paliperidone [Invega] 6 mg tablet extended release 24 hr 6 mg PO QAM Qty: 14 2RF Rx Instructions: Daily as needed 2 weeks prior to injection being due Invega Sustenna 234 mg/1.5 mL syringe 234 mg IM Q30D Qty: 1.5 2RF sertraline [Zoloft] 100 mg tablet 100 mg PO BID Qty: 60 2RF oxybutynin chloride 10 mg tablet extended release 24hr 10 mg PO DAILY trazodone 100 mg tablet 100 mg PO BEDTIME Discontinued meloxicam 15 mg tablet 15 mg PO DAILY Discharge Orders: Discharge Order (Routine); Ordered 07/13/23 Ordered By: Jens Cronin Referrals: [facility] [Outside] Yfn Sanchez MD [Physician] - 1 week Meli Goldman DO [Primary Care Provider] - 07/25/23 1:15 pm Discharge Diet: Regular and Cardiac Discharge Activity: Resume usual activity Patient Instructions: Opioid Safety Activity Restrictions/Additional Instructions: -please take antibiotics as prescribed -please take steroids as prescribed -please see dr. sanchez Discharge Attestations Time Spent in Discharge Care*: greater than 30 min Time Spent in Smoking Cessation: 3 to 10 minutes Quality Metrics Clinical Quality Measures [ No reported AMI, CVA or VTE this stay] Coding Level of Care Code 64268 Total time (in minutes) for Discharge: 45 Diagnoses Acute exacerbation of chronic obstructive pulmonary disease J44.1 Pneumonia J18.9 Bronchiolitis J21.9 Acute respiratory failure with hypoxia J96.01
--- NOTE | 2023-07-13 12:56 | PC.NURSE ---
Discharge education reviewed with patient. Verbalized understanding of DC POC.
== END 2023-07-13 12:55 | disposition home or self-care (01) | DRG 193 ==
LOC: ER 16:14 → MEDSURG 17:39
PROVIDERS: Admitting Provider Family Medicine; Emergency Provider Nurse Practitioner; PCP Family Medicine; Visit Provider Family Medicine
DX: J14 Pneumonia due to Hemophilus influenzae (principal); J96.01 Acute respiratory failure with hypoxia; F33.9 Major depressive disorder, recurrent, unspecified; J44.0 Chronic obstructive pulmonary disease with (acute) lower respiratory infection; J44.1 Chronic obstructive pulmonary disease with (acute) exacerbation; Z87.891 Personal history of nicotine dependence; Z79.891 Long term (current) use of opiate analgesic; F60.3 Borderline personality disorder; F12.20 Cannabis dependence, uncomplicated; F43.12 Post-traumatic stress disorder, chronic
CPT/HCPCS: 36415; 36600; 71045; 71250; 80048; 80053; 80061; 82805; 83036; 83735; 83880; 84100; 84145; 84443; 84484; 85025; 85378; 86140; 86403; 87040; 87070; 87077; 87426; 87486; 87581; 87633; 93005; 94640; 94664; 94760; 96365; 96372; 96375; 99285; C9113; J0456; J0696; J1650; J2920; J2930; J7050; J7512; J7626

== ENCOUNTER → 2023-08-12 11:07 | Outpatient (BNVA) | payer MEDICAID, SELFPAY ==
[2023-08-10 13:28] VITALS: BP 115/76; BMI 27.3
== END ==
PROVIDERS: PCP Family Medicine; Visit Provider Internal Medicine Pulmonary Disease
DX: J30.9 Allergic rhinitis, unspecified (principal); Z09 Encounter for follow-up examination after completed treatment for conditions other than malignant neoplasm; R06.09 Other forms of dyspnea; Z87.891 Personal history of nicotine dependence; J47.9 Bronchiectasis, uncomplicated
CPT/HCPCS: 99204

== ENCOUNTER 2023-09-06 15:39 | Outpatient (CLI) | payer MEDICAID, SELFPAY ==
[2023-08-10 13:28] VITALS: BP 115/76; BMI 27.3
--- NOTE | 2023-09-06 16:00 | CT_ITS ---
WS: [id number] CT chest wo con [id number] HISTORY: Check for resolution of infiltrates TECHNIQUE: Axial imaging performed through the thorax. Coronal and sagittal reformats are submitted. All CT scans at [facility] use at least one of these dose optimization techniques: automated exposure control; mA and/or kV adjustment per patient size (includes targeted exams where dose is mat ched to clinical indication); or iterative reconstruction. CONTRAST: None DLP: 453.91 mGy.cm COMPARISON: 07/10/2023 Lungs and central airway: Significant improvement in the tree-in-bud airspace disease throughout both lungs since 07/10/2023. Focal pleural-based opacification at the RIGHT lung base is moderately improv ed. Favor area of atelectasis. No pulmonary nodules. There is very minimal groundglass attenuation at the lung bases. Pleura: No effusions. Heart and pericardium: Normal size heart with no pericardial effusion. Mediastinum and leslie: No mediastinum or hilar adenopathy. Vessels: Minimal calcification of the aorta. Normal sized pulmonary artery. Chest wall and lower neck: No soft tissue masses. Upper abdomen: Mild hepatic steatosis. No adrenal mass. Gallbladder is negative. Visualized pancreas is negative. Osseous structures: No destructive process. IMPRESSION: 1. Significant improvement of the previously described endobronchial pneumonia and tree-in-bud airspa ce disease since 07/10/2023. 2. Minimal but improving subsegmental atelectasis at the RIGHT lung base. 3. Very minimal bilateral lower lobe groundglass attenuation. 4. No adenopathy.
== END 2023-09-06 15:40 | disposition home or self-care (01) ==
PROVIDERS: PCP Family Medicine; Visit Provider Internal Medicine Pulmonary Disease
DX: R06.09 Other forms of dyspnea (principal); J98.11 Atelectasis
CPT/HCPCS: 71250

== ENCOUNTER 2023-09-07 09:40 | Outpatient (CLI) | payer MEDICAID, SELFPAY ==
[2023-08-10 13:28] VITALS: BP 115/76; BMI 27.3
[2023-09-07 10:10] VITALS: PULSE 100; RESP 18; O2SAT 94
[2023-09-07 10:14] VITALS: PULSE 105
[2023-09-07] MEDS: albuterol 2.5 mg/3 mL Neb INHALATION (10:48)
== END 2023-09-07 09:41 | disposition home or self-care (01) ==
LOC: RT 09:41
PROVIDERS: PCP Family Medicine; Visit Provider Family Medicine
DX: J44.9 Chronic obstructive pulmonary disease, unspecified (principal)
CPT/HCPCS: 94060; 94618; 94726; 94729; J7613

== ENCOUNTER 2024-02-08 13:31 | Outpatient (CLI) | payer MEDICAID, SELFPAY ==
[2023-09-19 07:45] VITALS: BP 115/76; BMI 27.3
--- NOTE | 2024-02-08 14:00 | MM_ITS ---
WS: [id number] BILATERAL 3D TOMOSYNTHESIS DIGITAL SCREENING MAMMOGRAPHY WITH CAD CLINICAL INFORMATION: screening HISTORY: Screening mammogram. No current complaints. COMPARISON: 2020 TECHNIQUE: Bilateral CC and MLO views. FINDINGS: Scattered fibroglandular densities bilaterally. No suspicious focal mass, asymmetry, calcifications, or architectural distortion. No evidence of malignancy. A few incidental intramammary lymph nodes. IMPRESSION: MM/[place] [id number] BI-RADS: 2-Benign FOLLOW UP: 1 Year Follow-up Recommend return to annual screening mammography.
== END 2024-02-08 13:32 | disposition home or self-care (01) ==
LOC: RAD 13:31
PROVIDERS: PCP Family Medicine; Visit Provider Family Medicine
DX: Z12.31 Encounter for screening mammogram for malignant neoplasm of breast (principal)
CPT/HCPCS: 77063; 77067

== ENCOUNTER → 2024-02-14 13:29 | Outpatient (BNVA) | payer OTHER, SELFPAY ==
[2023-09-19 07:45] VITALS: BP 115/76; BMI 27.3
== END ==
PROVIDERS: PCP Family Medicine; Visit Provider Nurse Practitioner
DX: F60.3 Borderline personality disorder (principal); Z79.899 Other long term (current) drug therapy
CPT/HCPCS: 80061; 83036

== ENCOUNTER → 2025-02-08 13:36 | Outpatient (BNVA) | payer OTHER, SELFPAY ==
[2024-10-15 09:37] VITALS: BP 111/72; BMI 33.1
== END ==
PROVIDERS: PCP Family Medicine; Visit Provider Nurse Practitioner
DX: F60.3 Borderline personality disorder (principal); F12.20 Cannabis dependence, uncomplicated; F43.12 Post-traumatic stress disorder, chronic; Z79.899 Other long term (current) drug therapy
CPT/HCPCS: 80061; 83036

== ENCOUNTER → 2025-03-25 09:39 | Outpatient (BNVA) | payer MEDICAID, SELFPAY ==
[2025-02-11 11:57] VITALS: BP 121/86; BMI 33.7
== END ==
PROVIDERS: PCP Family Medicine; Visit Provider Family Medicine
DX: Z13.6 Encounter for screening for cardiovascular disorders (principal)
CPT/HCPCS: 80053; 84443; 85025

== ENCOUNTER 2025-03-28 10:50 | Outpatient (CLI) | payer MEDICAID, SELFPAY ==
[2025-02-11 11:57] VITALS: BP 121/86; BMI 33.7
--- NOTE | 2025-03-28 11:00 | MM_ITS ---
WS: [id number] BILATERAL 3D TOMOSYNTHESIS DIGITAL SCREENING MAMMOGRAPHY WITH CAD CLINICAL INFORMATION: screening HISTORY: Screening mammogram. No current complaints. COMPARISON: 2023 TECHNIQUE: Bilateral CC and MLO views. FINDINGS: Scattered fibroglandular densities bilaterally. No suspicious focal mass, asymmetry, calcifications, or architectural distortion. No evidence of malignancy. Intramammary lymph nodes RIGHT breast MM/MM scr BI tomosynthesis [id number] IMPRESSION: DENSITY: There are scattered areas of fibroglandular density. BI-RADS: 2 - Benign. FOLLOW UP: 1 Year Follow-up Recommend return to annual screening mammography.
== END 2025-03-28 10:51 | disposition home or self-care (01) ==
PROVIDERS: PCP Family Medicine; Visit Provider Family Medicine
DX: Z12.31 Encounter for screening mammogram for malignant neoplasm of breast (principal); R92.323 Mammographic fibroglandular density, bilateral breasts; R59.0 Localized enlarged lymph nodes
CPT/HCPCS: 77063; 77067

== ENCOUNTER → 2025-04-04 10:08 | Outpatient (BNVA) | payer MEDICAID, SELFPAY ==
[2025-02-11 11:57] VITALS: BP 121/86; BMI 33.7
== END ==
PROVIDERS: PCP Family Medicine; Referring Provider Family Medicine; Visit Provider Student in an Organized Health Care Education/Training Program
DX: K63.5 Polyp of colon (principal)
CPT/HCPCS: 99204

== ENCOUNTER 2025-04-08 14:42 | Outpatient (CLI) | payer MEDICAID, SELFPAY ==
[2025-02-11 11:57] VITALS: BP 121/86; BMI 33.7
--- NOTE | 2025-04-08 15:00 | CT_ITS ---
WS: [id number] LDCT LUNG CANCER SCREENING HISTORY: screening TECHNIQUE: Axial imaging performed from the apices to 1 cm below the costophrenic angles. Coronal and sagittal reformats are submitted with axial MIP series. All CT scans at [facility] use at least one of these dose optimization techniques: automated exposure control; mA and/or kV adjustment per patient size (includes targeted exams where dose is matched to clinical indication); or iterative reconstruction. DLP: 61.02 mGy.cm DIvol: Mean CTDIvol: 1.30 (mGy) COMPARISON: 09/06/2023, 07/10/2023 Diagnostic quality: Satisfactory Lungs: 2 mm micronodule LEFT upper lobe. LEFT perifissural 4 mm nodule. Focal subsegmental compressive atelectasis versus scarring at the RIGHT lung base is unchanged. No endobronchial lesions. Heart: Normal size heart with no pericardial effusion.. Other findings: No mediastinal or hilar adenopathy. Minimal atherosclerosis aorta. CT/CT lung screening [id number] IMPRESSION: LUNG-RADS: 2-Benign Appearance or Behavior FOLLOW UP: 12 Month: Continue annual screening with LDCT OTHER FINDINGS (S MODIFIER): None.
== END 2025-04-08 14:43 | disposition home or self-care (01) ==
PROVIDERS: PCP Family Medicine; Visit Provider Family Medicine
DX: Z12.2 Encounter for screening for malignant neoplasm of respiratory organs (principal); F17.210 Nicotine dependence, cigarettes, uncomplicated; R91.8 Other nonspecific abnormal finding of lung field
CPT/HCPCS: 71271

== ENCOUNTER 2025-04-16 08:15 | Day surgery (SDC) | payer MEDICAID, SELFPAY ==
[2025-02-11 11:57] VITALS: BP 121/86; BMI 33.7
[2025-04-16 08:43] VITALS: BP 105/86; PULSE 83; RESP 16; TEMP 36.2; O2SAT 92
[2025-04-16] MEDS: sodium chloride 0.9% 1,000 ML 15 ML IV (08:47)
--- NOTE | 2025-04-16 09:36 | P.ANESASSM_ITS ---
Pre-Anesthetic Assessment Height/Weight: Height 1.68 m Weight 86.183 kg Temp Pulse Resp BP Pulse Ox O2 Del Method 97.1 F L 83 16 105/86 92 Room Air 04/16/25 08:43 04/16/25 08:43 04/16/25 08:43 04/16/25 08:43 04/16/25 08:43 04/16/25 08:43 Preop Diagnosis: screening Operation Date: 04/16/25 10:00 Proposed Procedures p Colonoscopy [id number] G0105 Z12.11(Not Applicable) - Rogerio Whaley MD Familial anesthetic complications: none Was Beta Macario taken within 24 hours: N/A Was Clonidine taken within 24 hours: N/A Last intake: Intake Last Liquid Date 04/16/25 Last Liquid Time 07:30 Last Solid Date 04/14/25 Last Solid Time 12:00 Social Tobacco and No alcohol everyday smoker also smokes Marijuana daily pack(s) per day Exam alert, oriented x 3, clear to auscultation bilaterally and regular rate & rhythm Airway Submandibular: within normal limits Cervical ROM: within normal limits Mallampati: Class II Dentition: false History/ROS No significant history except as noted and No significant complaints Pulmonary Chronic Obstructive Pulmonary Disease and Exertional Dyspnea CV/HEM None reported None reported Hepatic None reported GI None reported Metabolic None reported Musc/skel None reported Neuropsych Anxiety and Depression Anesthetic Plan ASA status: 3 Anesthesia: MAC Risk of > 500 ml blood loss (7ml/kg in children): No Medications/Allergies Home Medications ?Medication ?Instructions ?Recorded ?Confirmed ?Last Taken ?Type acetaminophen 325 mg tablet 650 mg (2 x 325 mg) PO Q6H PRN 07/13/23 04/11/25 04/15/25 Rx Mild/Mod Pain Or Temp >/= 101 #30 tabs albuterol sulfate 90 mcg/actuation 2 puff inhalation Q 6H #18 ea 03/25/25 04/11/25 04/15/25 Rx aerosol inhaler (Ventolin HFA) budesonide-formoterol HFA 160 1 inh inhalation BID #10 .2 grams 03/25/25 04/11/25 04/15/25 Rx mcg-4.5 mcg/actuation aerosol inhaler (Symbicort) oxybutynin chloride 10 mg 10 mg PO DAILY #30 tabs 04/2 07/2204/11/25 04/15/25 Rx tablet,extended release 24 hr buspirone 15 mg tablet See Rx Instructions .Route 0 04/05/25 04/11/25 04/15/25 Rx .COMPLEX #90 tabs paliperidone palmitate 234 mg/1.5 234 mg (1.5 mL) IM Q 30D #1.5 mL 04/05/25 04/11/25 04/15/25 Rx mL intramuscular syringe (Invega Sustenna) sertraline 100 mg tablet (Zoloft) 100 mg PO BID #60 ta bs 04/05/25 04/11/25 04/15/25 Rx trazodone 100 mg tablet 100 mg PO BEDTIME #30 tabs 0 04/05/25 04/11/25 04/15/25 Rx Allergies Allergy/AdvReac Type Severity Reaction Status Date / Time No Known Allergies Allergy Verified 04/11/25 09:54 Current Medications Generic Name Dose Route Start Last Admin Trade Name Freq PRN Reason Stop Dose Admin Sodium Chloride 1,000 mls @ 15 mls/hr 04/16/25 08:20 04/16/25 08:47 Sodium Chloride 0.9% IV 04/17/25 08:19 15 mls/hr .Q24H PRN Administration COLONOSCOPY FLUIDS PFSH Anesthesia Medical History Cannabis dependence, uncomplicated Psychiatric care Migraine headache Mixed incontinence Major depressive disorder, recurrent, moderate Nicotine dependence, cigarettes, uncomplicated Borderline personality disorder Post-traumatic stress disorder, chronic Surgical History Status post colonoscopy (05/27/20) polyps H/O: hysterectomy (~2003) LAVH/BSO Performed due to bleeding. H/O tubal ligation Family History Mother Thyroid disease Grandfather Diabetes Maternal Hypertension Maternal Denies family history of Colon cancer Ovarian cancer Heart disease Hyperlipidemia Breast cancer Bleeding disorder Uterine cancer Stroke Social History (Updated 04/04/25 @ 10:[address]) Smoking and tobacco/nicotine status: current every day tobacco/nicotine user Second hand smoke exposure: No Alcohol intake: former Year of sobriety/quit date alcohol: 2013 Substance/Drug Use: current Substance/Drug use frequency: daily Adopted: No Caregiver/support person: No Lives independently: Yes Household members: children Housing: Apartment Marital status: Number of children: 4 Number of grandchildren: 8 Highest education level completed: 10th Grade service: No Current occupational status: disabled Pets and animals: Yes Pets & animals: dog(s) Leisure activites: music and other Leisure activities details: watch tv Sexually active: No Do you think of yourself as: Straight/Heterosexual Current gender identity: Female Katie/Confucianist: Worship Special katie needs: No Agree to transfusion: Yes Female Reproductive History Para: 4 Spontaneous abortions: Yes (1 spontaneous abortions)
--- NOTE | 2025-04-16 10:23 | W.PM.OPSUD ---
Surgery/Procedure H&P Update DATE OF PROCEDURE: April 16, 2025 DATE H&P PERFORMED: 04/04/25 H&P UPDATE INFORMATION: I have reviewed H&P completed within last 30 days, I have examined patient prior to procedure and No changes to prior documentation PREOP DIAGNOSIS: screening PLANNED PROCEDURE: Operation Date: 04/16/25 10:00 Proposed Procedures p Colonoscopy [id number] Z12.11(Not Applicable) - Rogerio Whaley MD
[2025-04-16 11:05] VITALS: BP 115/73; PULSE 71; RESP 18; TEMP 36.2; O2SAT 92
[2025-04-16 11:20] VITALS: BP 113/91; PULSE 68; RESP 18; O2SAT 96
[2025-04-16 11:29] VITALS: BP 128/85; PULSE 61; RESP 18; O2SAT 96
[2025-04-16 11:45] VITALS: BP 132/78; PULSE 64; RESP 18; O2SAT 96
--- NOTE | 2025-04-16 11:55 | ANE.PACU2 ---
Inpatient post-anesthesia follow up: Airway intact: Yes Vital signs: Temperature 97.2 F Pulse Rate 64 Respiratory Rate 18 Blood Pressure 132/78 Pulse Oximetry 96 Oxygen Delivery Me thod Room Air Oxygen Flow Rate Fraction of Inspir ed Oxygen Hydration adequate: Yes Nausea and vomiting: No Pain level: 1 Mental status: Baseline
== END 2025-04-16 11:55 | disposition home or self-care (01) ==
PROVIDERS: PCP Family Medicine; Visit Provider Student in an Organized Health Care Education/Training Program
PROC: 0DJD8ZZ Inspection of Lower Intestinal Tract, Via Natural or Artificial Opening Endoscopic (ICD-10-PCS; CPT 45378; principal; 2025-04-16 10:00)
DX: Z12.11 Encounter for screening for malignant neoplasm of colon (principal); K62.1 Rectal polyp; J44.9 Chronic obstructive pulmonary disease, unspecified; Z79.899 Other long term (current) drug therapy; F17.200 Nicotine dependence, unspecified, uncomplicated; Z86.0102 Personal history of hyperplastic colon polyps
CPT/HCPCS: 45385; 88305; J2704; J7030

== ENCOUNTER → 2025-04-29 09:39 | Outpatient (BNVA) | payer MEDICAID, SELFPAY ==
[2025-02-11 11:57] VITALS: BP 121/86; BMI 33.7
== END ==
PROVIDERS: PCP Family Medicine; Visit Provider Student in an Organized Health Care Education/Training Program
DX: Z09 Encounter for follow-up examination after completed treatment for conditions other than malignant neoplasm (principal)
CPT/HCPCS: 99213